=== PATIENT | male | born 1935 | race Caucasian/White ===

== ENCOUNTER → 2018-09-30 10:54 | Outpatient (CLI) | payer MEDICARE, SELFPAY ==
[2018-09-30 11:57] LABS: BUN Creatinine Ratio 28.6 (6-22); Blood Urea Nitrogen 20 mg/dL (9-20); Calcium 10.4 mg/dL (8.4-10.2); Carbon Dioxide 30 mmol/L (22-32); Chloride 103 mmol/L (98-107); Estimated Glomerular Filt Rate > 60.0 mL/min (>60); Glucose 98 mg/dL (80-110); HEMOLYSIS < 15 (0-50); Potassium 4.2 mmol/L (3.4-5.1); Sodium 142 mmol/L (137-145)
== END ==
PROVIDERS: Family Provider Family Medicine; PCP Family Medicine; Visit Provider Internal Medicine Cardiovascular Disease
DX: I10 Essential (primary) hypertension (principal)
CPT/HCPCS: 36415; 80048

== ENCOUNTER → 2018-10-15 07:58 | Outpatient (CLI) | payer MEDICARE, SELFPAY ==
--- NOTE | 2018-10-15 | DI.ECHO.S_ITS ---
[facility]---------+ [facility] +---------+ : : [address] : [address] [address] : : : : [id number] : : : : Phone: [phone]+ Echocardiogram Report + + :Name: YEISON RODRIGUEZ Study Date: 10/15/2018 Height: 72 in : :[facility] Weight: 193 lb : : Gender: Male BSA: 2.1 m2 : :: 1935 Age: 83 yrs BP: 160/86 mmHg: :Reason For Study: ASCENDING AORTIC DILATATION : :Ordering Physician: Ana : :Little Nayak Performed By: Sofya Zhao : + + Interpretation Summary Left ventricular size is at the upper limits of normal. The ejection fraction is estimated to be 35-40%. No significant change in LV ejection fraction. MV E/A: 2.3 Med Peak E' Zackery: 5.4 cm/sec E/E' med: 15.8 The right ventricle is normal size. Right ventricular systolic function is borderline reduced. There is mild aortic regurgitation. Compared to the prior echo study, there has been no change in the severity of aortic regurgitation. 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 4.9 cm in diameter. In July 22, 2017 it was 4.9-5.0 cm in diameter. In 05/09/2015 it was 4.8 cm in diameter. In 03/2011 it was 4.5 cm and in 08/2010, it was 4.7 cm. Procedure: A two-dimensional transthoracic echocardiogram with color flow and Doppler was performed. The study quality was technically adequate. A contrast injection of Definity was performed to improve assessment of LV function. Comparison is made with the echocardiogram of 07/22/2017. The patient had occasional PVCs during the exam. The patient was in normal sinus rhythm during the exam. Left Ventricle: Left ventricular wall thickness is mild-moderately increased. Left ventricular size is at the upper limits of normal. There is no ventricular septal defect visualized. The ejection fraction is estimated to be 35-40%. There has been no significant change since the previous study. There is basal inferior wall akinesis. There is mid inferior wall akinesis. Compared to the prior exam, the left ventricular wall motion has not changed. MV E/A: 2.3 Med Peak E' Zackery: 5.4 cm/sec E/E' med: 15.8. Right Ventricle: The right ventricle is normal size. Right ventricular systolic function is borderline reduced. Atria: The left atrium is moderately dilated. The left atrium has mildly increased in size since the prior echo exam. Right atrial size is normal. There is no Doppler evidence for an interatrial shunt. Mitral Valve: There is mild mitral annular calcification. There is trace mitral regurgitation. Aortic Valve: The aortic valve is trileaflet. The aortic valve opens well. The aortic valve is slightly calcified. There is no aortic valve stenosis. There is mild aortic regurgitation. Compared to the prior echo study, there has been no change in the severity of aortic regurgitation. Tricuspid Valve: The tricuspid valve is normal in structure and function. Pulmonary artery pressures cannot be estimated because of the lack of a measurable TR jet velocity. There is trace tricuspid regurgitation. Pulmonic Valve: The pulmonic valve leaflets are thin and pliable; valve motion is normal. There is trace pulmonic regurgitation. Great Vessels: The aortic root is mildly dilated. 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 There has been no significant change since the previous study. The aortic arch could not be visualized. The IVC is of normal diameter and collapses greater than 50% with a sniff. This suggests a low right atrial pressure of 3 mm Hg. Pericardium/ Pleura There is no pericardial effusion. MMode/2D Measurements & Calculations LVIDd: 5.7 cm LVOT diam: 2.9 cm LVIDs: 4.4 cm Ao root diam: 4.4 cm FS: 22.8 % Aortic Jxn: 3.9 cm EPSS: 1.2 cm asc Aorta Diam: 4.9 cm IVSd: 1.5 cm LVPWd: 1.4 cm LV crespo. diameter/BSA (cm/m^2): 2.7 LV sys. diameter/BSA (cm/m^2): 2.1 LA A2 area: 24.8 cm2 RA long axis: 4.4 cm LA A4 area: 24.8 cm2 RA area: 17.7 cm2 LA length (vol): 5.6 cm RA vol: 61.1 ml LA vol: 93.7 ml RA : 29.1 ml/m2 LA vol index: 44.7 ml/m2 IVC diam: 2.0 cm Doppler Measurements & Calculations Ao V2 max: 123.5 cm/sec LVOT Max Zackery: 54.7 cm/sec Ao V2 mean: 81.0 cm/sec LV V1 max P.2 mmHg Ao max P.1 mmHg LV V1 VTI: 11.9 cm Ao mean P.1 mmHg MIKKI(I,D): 3.1 cm2 Ao V2 VTI: 24.7 cm MIKKI(V,D): 2.9 cm2 sev ratio: 0.48 MIKKI indexed to BSA (cm^2/m^2): 1.5 AI P1/2t: 477.8 msec AI dec slope: 248.6 cm/sec2 MV E max zackery: 84.7 cm/sec PA V2 max: 58.6 cm/sec MV A max zackery: 36.7 cm/sec PA V2 mean: 39.1 cm/sec MV E/A: 2.3 PA mean P.70 mmHg Med Peak E' Zackery: 5.4 cm/sec PA Accel Time: 0.12 sec E/E' med: 15.8 Lat Peak E' Zackery: 6.5 cm/sec E/E' lat: 13.0 E/e' average: 14.4 MV dec time: 0.20 sec MV P1/2t: 58.1 msec MV P1/2t max zackery: 84.6 cm/sec SV(LVOT): 77.8 ml MVA(P1/2t): 3.8 cm2 Reading Physician:11:01 AM
== END ==
PROVIDERS: PCP Family Medicine; Visit Provider Internal Medicine Cardiovascular Disease
DX: I77.810 Thoracic aortic ectasia (principal); I35.1 Nonrheumatic aortic (valve) insufficiency
CPT/HCPCS: 93306; Q9957

== ENCOUNTER → 2019-01-06 12:40 | Outpatient (CLI) | payer MEDICARE, SELFPAY ==
[2019-01-06 13:50] LABS: BUN Creatinine Ratio 18.9 (6-22); Blood Urea Nitrogen 17 mg/dL (9-20); Calcium 10.7 mg/dL (8.4-10.2); Carbon Dioxide 29 mmol/L (22-32); Chloride 104 mmol/L (98-107); Cholesterol 125 mg/dL (140-199); Estimated Glomerular Filt Rate > 60.0 mL/min (>60); Glucose 98 mg/dL (80-110); HDL Cholesterol 33 mg/dL (40-60); HEMOLYSIS < 15 (0-50); LDL Cholesterol Calculated 58 mg/dL (<100); Potassium 4.5 mmol/L (3.4-5.1); Sodium 142 mmol/L (137-145); Triglycerides 168 mg/dL (35-150)
== END ==
PROVIDERS: PCP Family Medicine; Visit Provider Internal Medicine Cardiovascular Disease
DX: I10 Essential (primary) hypertension (principal); E78.5 Hyperlipidemia, unspecified
CPT/HCPCS: 36415; 80048; 80061

== ENCOUNTER 2019-06-09 09:01 | Emergency (ER) | payer MEDICARE, SELFPAY ==
[2019-06-09 09:15] VITALS: BP 195/98; PULSE 64; RESP 20; O2SAT 96; BMI 25.7
--- NOTE | 2019-06-09 09:15 | ED.GENADULT ---
HPI - General Adult General Chief complaint: Fall Stated complaint: FALL ON CEMENT,RIB PAIN Time Seen by Provider: 06/09/19 09:10 Source: patient Mode of arrival: Ambulatory Limitations: no limitations History of Present Illness HPI narrative: 83-year-old male. On anticoagulation. Here for evaluation of injuries that he sustained when he fell 2 days ago. He states he was trying to move an appliance when he lost his balance fell over hitting his left side on the ground. He did not hit his head. There was no loss of consciousness. Since then has had pain over his left lower ribs. Specifically pain with moving and coughing and taking deep breaths. No fevers. No productive sputum. Has not tried anything for symptoms prior to arrival. Related Data Home Medications Medication Instructions Recorded Confirmed tamsulosin [Flomax] 0.4 mg PO HS #0 02/27/11 05/05/19 atorvastatin [Lipitor] 40 mg PO HS #30 tab 12/15/15 05/05/19 metoprolol succinate [Toprol XL] 50 mg PO QDAY #0 07/30/16 05/05/19 nitroglycerin [Nitrostat] 0.4 mg SUBLINGUAL #0 07/30/16 05/05/19 amlodipine 5 mg tablet 5 mg PO DAILY 05/05/19 05/05/19 aspirin 81 mg tablet,delayed 81 mg PO DAILY 05/05/19 05/05/19 release Previous Rx's Medication Instructions Recorded trazodone 50 mg PO HS #30 tab 01/01/16 hydrocodone 7.5 mg-acetaminophen 1 - 2 tab PO SEE INSTRUCTIONS #100 04/23/18 325 mg tablet tab hydrochlorothiazide 25 mg tablet 25 mg PO QDAY #60 tab 09/30/18 citalopram 20 mg tablet 40 mg PO QDAY #180 tab 10/13/18 diazepam 5 mg tablet 5 mg PO BEDTIME PRN #30 tab 05/05/19 hydrocodone 7.5 mg-acetaminophen 1 - 2 tab PO Q4-6HP PRN #100 tab 05/05/19 325 mg tablet Allergies Allergy/AdvReac Type Severity Reaction Status Date / Time MUSCLE RELAXANTS Allergy Severe HARD TO Uncoded 06/25/17 13:07 BREATHE Review of Systems Constitutional Constitutional: Denies fever(s) and Denies headache(s) ENT Ears, Nose, Mouth, and Throat: Denies headache(s) Cardiovascular Comments: Left lower rib pain Respiratory Respiratory: Denies cough, Reports pain with cough and Denies wheezing Gastrointestinal Gastrointestinal: Denies abdominal pain Genitourinary Genitourinary: Denies dysuria Musculoskeletal Musculoskeletal: Denies back pain and Denies myalgias Integumentary/Breasts Skin/Breast: Denies lesions and Denies rash Neurologic Neurologic: Denies behavioral changes and Denies headache(s) Psychiatric Psychiatric: Denies behavioral changes Hematologic/Lymphatic Comments: On Coumadin Allergic/Immunologic Allergic/Immunologic: Denies wheezing Patient History Medical History Amputation of leg, right, traumatic (Acute) Social History Smoking Status: Former smoker (1982 Quit ) Smoking Status: Former smoker (1982 Quit ) Exam Initial Vital Signs Initial Vital Signs: Vital Signs Pulse Rate 64 06/09/19 09:15 Respiratory Rate 20 06/09/19 09:15 Blood Pressure 195/98 H 06/09/19 09:15 Pulse Oximetry 96 06/09/19 09:15 Const General: cooperative and comfortable Chest Other: Tenderness to palpation left lower ribs laterally and anterior. No crepitus. Resp Effort & Inspection: normal respiratory effort Auscultation: clear to auscultation bilaterally Cardio Rate: regular rate Rhythm: regular rhythm Skin Lesions: no lesions Rashes: no rashes Neuro General: alert and awake Cognition: normal cognition Speech: speech normal Extrem General: capillary refill normal Other: Right lower extremity amputation, not new Psych Appearance: grossly normal and well kempt Scores GCS Jefferson coma scale eye opening: Spontaneous Jefferson coma scale verbal response: Orientated [place] coma scale motor response: Obey commands Jefferson coma scale total score: 15 Course Orders Ordered: ED Orders 06/09/19 09:14 XR ribs LT min 3V w CXR1V Stat Vital Signs Vital signs: Vital Signs - 8 hr 06/09/19 09:15 06/09/19 10:29 Pulse Rate 64 74 Respiratory Rate 20 16 Blood Pressure 195/98 H Blood Pressure [Left Arm] 179/85 H Pulse Oximetry 96 96 Medical Decision Making Imaging Data XR ribs: Radiologist's Impression: [address] [address] XRay Report Signed Patient: Rajani Lin RMR#: [id number] : 6Acct:[id number] Age/Sex: 83 / MDate of Service: 06/09/19 Loc: ED Accession Number: [id number] Procedure: XR ribs LT min 3V w CXR1V Ordering Provider: Adrián Simental D.O. PROCEDURE: XR RIBS LT MIN 3V W CXR1V INDICATIONS: L lower lateral rib pain TECHNIQUE: 3 views of the left ribs were acquired, along with a single view chest. COMPARISON: [facility], CT, ABDOMEN/PELVIS WITH CONTRAST, 10/05/2015, 9:34. FINDINGS: Surgical changes and devices: Remote CABG. Bones and chest wall: Severe age indeterminate L1 compression fracture, which has occurred since the previous CT. Anterior lateral left eighth rib fracture. No suspicious bony lesions. Overlying soft tissues appear unremarkable. Lungs and pleura: Small left pleural effusion. Minimal bibasilar atelectasis. Mediastinum: Mediastinal contours appear normal. Heart size is mildly enlarged. IMPRESSION: 1. Anterolateral left eighth rib fracture. 2. Age-indeterminate severe L1 compression fracture. 3. Small left pleural effusion, minimal bibasilar atelectasis. Dictated by: Samir Alegria M.D. on 06/09/2019 at 10:06 Approved by: Samir Alegria M.D. on 06/09/2019 at 10:13 [facility] Narrative Medical decision making narrative: Patient without any respiratory distress. The left-sided rib x-ray does show a 8 rib fracture this does correspond to where he is tender on the his left chest. He has no tenderness over the L1 vertebral body. No fevers. He does have pain medication at home currently and also muscle relaxation. We did discuss the importance of taking deep breaths. We did discuss return precautions and follow-up instructions. He expressed understanding and agreement. Discharge Plan Departure Patient Disposition: Home Clinical Impression: Fracture of rib of left side Qualifiers: Encounter type: initial encounter Rib fracture type: single rib Fracture type: closed Qualified Code(s): S22.32XA - Fracture of one rib, left side, initial encounter for closed fracture Instructions: DI for Rib Fracture Activity Restrictions/Additional Instructions: It is important that you occasionally take deep breaths in order to prevent infections such as pneumonia. Unfortunately this is not a painless injury. It will hurt when you cough or sneeze. Take the pain medication at home like we discussed. Return to the emergency department for any new or worsening symptoms Prescriptions: No Action tamsulosin [Flomax] 0.4 MG capsule,extended release 24hr 0.4 mg PO HS Qty: 0 RF: 0 atorvastatin [Lipitor] 40 MG tablet 40 mg PO HS Qty: 30 RF: 0 trazodone 50 MG tablet 50 mg PO HS Qty: 30 RF: 5 nitroglycerin [Nitrostat] 0.4 MG tablet, sublingual 0.4 mg Sublingual Qty: 0 RF: 0 metoprolol succinate [Toprol XL] 50 MG tablet extended release 24 hr 50 mg PO QDAY Qty: 0 RF: 0 hydrocodone-acetaminophen [[place]] 7.5-325 mg tablet 1 - 2 tab PO SEE INSTRUCTIONS Qty: 100 RF: 0 hydrochlorothiazide 25 mg tablet 25 mg PO QDAY Qty: 60 RF: 0 citalopram [Celexa] 20 mg tablet 40 mg PO QDAY Qty: 180 RF: 1 amlodipine 5 mg tablet 5 mg PO DAILY RF: 0 aspirin [Adult Aspirin Regimen] 81 mg tablet,delayed release (DR/EC) 81 mg PO DAILY RF: 0 hydrocodone-acetaminophen [[place]] 7.5-325 mg tablet 1 - 2 tab PO Q4-6HP PRN (Reason: pain) Qty: 100 RF: 0 diazepam 5 mg tablet 5 mg PO BEDTIME PRN (Reason: muscle spasm) Qty: 30 RF: 2 Referrals: Ty Roland MD [Primary Care Provider] -
[2019-06-09 10:29] VITALS: BP 179/85; PULSE 74; RESP 16; O2SAT 96
--- NOTE | 2019-06-09 10:29 | PC.NURSE ---
dr florez aware of vs.
== END 2019-06-09 10:48 | disposition home or self-care (01) ==
PROVIDERS: Emergency Provider Emergency Medicine; PCP Family Medicine
DX: S22.32XA Fracture of one rib, left side, initial encounter for closed fracture (principal); W19.XXXA Unspecified fall, initial encounter
CPT/HCPCS: 71101; 99283; 99284

== ENCOUNTER → 2019-07-14 10:10 | Outpatient (CLI) | payer MEDICARE, SELFPAY ==
--- NOTE | 2019-07-14 10:17 | DI.RAD.S_ITS ---
PROCEDURE: XR RIBS LT MIN 3V W CXR1V INDICATIONS: Left side pain TECHNIQUE: 3 views of the left ribs were acquired, along with a single view chest. COMPARISON: [facility], CR, XR RIBS LT MIN 3V W CXR1V, 06/09/2019, 9:09. FINDINGS: Surgical changes and devices: Prior sternotomy wires, presumed prior CABG.. Bones and chest wall: No dislocations. But there is a left lateral eighth rib fracture, mildly displaced erlying soft tissues appear unremarkable. Lungs and pleura: No pleural effusions or pneumothorax. Lungs appear clear. Mediastinum: Mediastinal contours appear normal. Heart size is normal. IMPRESSION: Left lateral eighth rib fracture. No pneumothorax. Slight irregularity at the adjacent left ninth rib could represent an injury also. Dictated by: Rm Johnston M.D. on 07/14/2019 at 11:26 Approved by: Rm Johnston M.D. on 07/14/2019 at 11:28
== END ==
PROVIDERS: PCP Family Medicine; Referring Provider Family Medicine; Visit Provider Family Medicine
DX: S22.32XA Fracture of one rib, left side, initial encounter for closed fracture (principal)
CPT/HCPCS: 71101

== ENCOUNTER → 2020-05-05 14:56 | Outpatient (CLI) | payer MEDICARE, SELFPAY | PROVIDERS: PCP Family Medicine; Visit Provider Physician Assistant | DX: L03.111 Cellulitis of right axilla (principal) | CPT/HCPCS: 87070; 87075; 87147; 87205 ==

== ENCOUNTER → 2020-09-05 09:24 | Outpatient (CLI) | payer MEDICARE, SELFPAY ==
[2020-09-05 10:07] LABS: Add Manual Diff / Slide Review NO; Basophils Absolute Auto 0 /uL (0-100); Basophils Percent Auto 0.8 % (0-2); Eosinophils Absolute Auto 100 /uL (0-450); Eosinophils Percent Auto 1.3 % (2-4); Hematocrit 45.2 % (41-53); Hemoglobin 15.1 g/dL (13.5-17.5); Lymphocytes Absolute Auto 1800 /uL (1100-4500); Lymphocytes Percent Auto 29.9 % (25-40); Mean Corpuscular HGB Conc 33.3 % (30-36); Mean Corpuscular Hemoglobin 30.2 PG (26-34); Mean Corpuscular Volume 90.6 fL (80-100); Monocytes Absolute Auto 500 /uL (0-900); Neutrophils Absolute Auto 3500 /uL (1500-7000); Platelet Count 220 X10^3/uL (150-400); Red Blood Cell Count 4.99 X10^6/uL (4.5-5.9); Red Cell Distribution Width 14.8 % (11.6-14.8); White Blood Cell Count 5.9 X10^3/uL (4.5-11.0)
[2020-09-05 10:36] LABS: HEMOLYSIS < 15 (0-50)
[2020-09-05 10:42] LABS: Alanine Aminotransferase 12 IU/L (<50); Albumin Globulin Ratio 1.3 (1.0-2.8); Alkaline Phosphatase 72 U/L (38-126); Aspartate Aminotransferase 32 IU/L (17-59); BUN Creatinine Ratio 14.6 (6-22); Blood Urea Nitrogen 13 mg/dL (9-20); Calcium 10.2 mg/dL (8.4-10.2); Carbon Dioxide 30 mmol/L (22-32); Chloride 104 mmol/L (98-107); Cholesterol 168 mg/dL (140-199); Estimated Glomerular Filt Rate > 60.0 mL/min (>60); Glucose 106 mg/dL (80-110); HDL Cholesterol 39 mg/dL (40-60); LDL Cholesterol Calculated 104 mg/dL (<100); Potassium 3.5 mmol/L (3.4-5.1); Sodium 141 mmol/L (137-145); Triglycerides 126 mg/dL (35-150)
[2020-09-05 16:03] LABS: Hemoglobin A1C% w Est Avg Glu 5.4 % (4.0-6.0)
[2020-09-05 16:08] LABS: Prostate Specific Antigen 2.68 ng/mL (0.10-4.00)
== END ==
PROVIDERS: PCP Family Medicine; Referring Provider Family Medicine; Visit Provider Family Medicine
DX: E78.2 Mixed hyperlipidemia (principal); R63.4 Abnormal weight loss; N40.0 Benign prostatic hyperplasia without lower urinary tract symptoms; I10 Essential (primary) hypertension
CPT/HCPCS: 36415; 80053; 80061; 83036; 84153; 85025

== ENCOUNTER 2021-01-17 10:41 | Emergency (ER) | payer MEDICARE, SELFPAY ==
[2021-01-17 10:45] VITALS: BP 189/83; PULSE 97; RESP 14; TEMP 36.2; O2SAT 97; BMI 23.1
--- NOTE | 2021-01-17 10:57 | ED.GENADULT ---
HPI - General Adult General Chief complaint: Dental/Oral Stated complaint: Tooth pulled yesterday- still bleeding. onthinners Time Seen by Provider: 01/17/21 10:56 Source: patient Mode of arrival: Wheelchair Limitations: no limitations History of Present Illness HPI narrative: Patient is an 85-year-old male. Is on blood thinners. Yesterday had a tooth pulled. Last evening started having oozing from the site. Has been bleeding since then. No problems breathing. He thinks that he potentially could have taken an extra dose of his blood thinning medication last evening. He attempted to go to his dentist today but the dentist does not going to be in the office until this afternoon so he was instructed to come to the emergency department. Related Data Home Medications Medication Instructions Recorded Confirmed aspirin 81 mg tablet,delayed 81 mg PO DAILY 05/05/19 09/05/20 release (Adult Aspirin Regimen) Previous Rx's Medication Instructions Recorded amlodipine 5 mg tablet 5 mg PO DAILY #90 tab 09/05/20 atorvastatin 40 mg tablet (Lipitor) 40 mg PO HS #90 tab 09/05/20 citalopram 40 mg tablet 40 mg PO DAILY #90 tab 09/05/20 diazepam 5 mg tablet 5 mg PO BEDTIME PRN #30 tab 09/05/20 lisinopril 20 mg tablet 20 mg PO BID #180 tab 09/05/20 metoprolol succinate 50 mg 50 mg PO BID #180 tab 09/05/20 tablet,extended release 24 hr (Toprol XL) mupirocin 2 % topical ointment 1 applic TOPICAL TID #30 g 09/05/20 nitroglycerin 0.4 mg sublingual 0.4 mg SUBLINGUAL Q5-15M #20 tab 09/05/20 tablet (Nitrostat) tamsulosin 0.4 mg capsule (Flomax) 0.4 mg PO HS #90 cap 09/05/20 trazodone 50 mg tablet 50 mg PO HS #90 tab 09/05/20 hydrocodone 10 mg-acetaminophen 2 tab PO Q6H PRN #240 tab 11/28/20 325 mg tablet hydrocodone 7.5 mg-acetaminophen 1 - 2 tab PO Q4-6HP PRN #150 tab 11/28/20 325 mg tablet hydrochlorothiazide 25 mg tablet See Rx Instructions .ROUTE 12/13/20 .COMPLEX #90 tab Allergies Allergy/AdvReac Type Severity Reaction Status Date / Time MUSCLE RELAXANTS Allergy Severe HARD TO Uncoded 09/05/20 08:18 BREATHE Review of Systems ENT Ears, Nose, Mouth, and Throat: Reports system reviewed and no additional complaints, except as documented and Reports as per HPI Cardiovascular Cardiovascular: Reports system reviewed and no additional complaints, except as documented Respiratory Respiratory: Reports system reviewed and no additional complaints, except as documented Gastrointestinal Gastrointestinal: Reports system reviewed and no additional complaints, except as documented Hematologic/Lymphatic On Anticoagulants: Yes Patient History Medical History Amputation of leg, right, traumatic Cellulitis of right axilla Weight loss observed on examination Social History Smoking Status: Former smoker Smoking Status: Former smoker alcohol intake frequency: 0-2 drinks per day Substance Use Type: marijuana Exam Initial Vital Signs Initial Vital Signs: Vital Signs Temperature 97.1 F L 01/17/21 10:45 Pulse Rate 97 H 01/17/21 10:45 Respiratory Rate 14 01/17/21 10:45 Blood Pressure 189/83 H 01/17/21 10:45 Pulse Oximetry 97 01/17/21 10:45 Const General: cooperative, healthy appearing and comfortable HENTX Head: normal to inspection and normocephalic Teeth and gingiva: other (Oozing from right upper posterior tooth bed) Resp Effort & Inspection: normal respiratory effort Skin General: no rashes or lesions noted Neuro General: patient alert, patient awake and moves all extremities Extrem General: normal to inspection and capillary refill normal Psych Appearance: grossly normal and well kempt Course Orders Ordered: Discontinued Medications Tranexamic Acid (Tranexamic Acid 1,000 Mg Vial) 1,000 mg TOP NOW ONE Stop: 01/17/21 10:57 Last Admin: 01/17/21 11:00 Dose: 1,000 mg Documented by: AGUSTIN Vital Signs Vital signs: Vital Signs - 8 hr 01/17/21 10:45 Temperature 97.1 F L Pulse Rate 97 H Respiratory Rate 14 Blood Pressure 189/83 H Pulse Oximetry 97 Medical Decision Making MDM Narrative Medical decision making narrative: Patient did have a clot present in the upper right posterior molar tooth bit. There was quite a bit of oozing from this area. We used pressure and gauze and also Gelfoam soaked in TXA. We were able to slow the bleeding down quite a bit. At the time of discharge it was still oozing somewhat. I did discuss options with the patient to include injecting lidocaine with epinephrine into the area versus sending him home with gauze to continue to placed pressure over the area. We also discussed using ice at home. After this discussion he stated that he would like to be discharged home without any injections. I do not think this is unreasonable. Low suspicion for anemia secondary to blood loss. No indication for lab tests. He was given strict return precautions and follow-up instructions. He expressed understanding and agreement. Discharge Plan Departure Patient Disposition: Home Clinical Impression: Surgical wound hemorrhage after dental procedure Activity Restrictions/Additional Instructions: Use the gauze sponges like we discussed. Continue all of the post procedure instructions given to you by a dentist. Contact your primary doctor for a follow-up. Return to the emergency department for any new or worsening symptoms Prescriptions: No Action hydrocodone-acetaminophen 10-325 mg tablet 2 tab PO Q6H PRN (Reason: pain) Qty: 240 RF: 0 hydrocodone-acetaminophen 7.5-325 mg tablet 1 - 2 tab PO Q4-6HP PRN (Reason: pain) Qty: 150 RF: 0 hydrochlorothiazide 25 mg tablet See Rx Instructions .ROUTE .COMPLEX Qty: 90 RF: 2 amlodipine 5 mg tablet 5 mg PO DAILY Qty: 90 RF: 3 atorvastatin [Lipitor] 40 mg tablet 40 mg PO HS Qty: 90 RF: 3 citalopram 40 mg tablet 40 mg PO DAILY Qty: 90 RF: 3 diazepam 5 mg tablet 5 mg PO BEDTIME PRN (Reason: muscle spasm) Qty: 30 RF: 2 lisinopril 20 mg tablet 20 mg PO BID Qty: 180 RF: 3 metoprolol succinate [Toprol XL] 50 mg tablet extended release 24 hr 50 mg PO BID Qty: 180 RF: 3 mupirocin 2 % ointment 1 applic topical TID Qty: 30 RF: 0 nitroglycerin [Nitrostat] 0.4 mg tablet, sublingual 0.4 mg Sublingual Q5-15M Qty: 20 RF: 2 tamsulosin [Flomax] 0.4 mg capsule 0.4 mg PO HS Qty: 90 RF: 3 trazodone 50 mg tablet 50 mg PO HS Qty: 90 RF: 3 aspirin [Adult Aspirin Regimen] 81 mg tablet,delayed release (DR/EC) 81 mg PO DAILY RF: 0 Referrals: Filemon Nathan DO [Primary Care Provider] -
[2021-01-17] MEDS: TRANEXAMIC ACID 1,000 MG VIAL 1000 MG TOP (11:00)
--- NOTE | 2021-01-17 12:00 | PC.NURSE ---
Tooth socket continues to ooze blood around clot despite TXA gauze placement. Dr. Simental at bedside reapplying TXA gauze. Pt tolerating well.
== END 2021-01-17 13:05 | disposition home or self-care (01) ==
PROVIDERS: Emergency Provider Emergency Medicine; PCP Family Medicine
DX: M96.831 Postprocedural hemorrhage of a musculoskeletal structure following other procedure (principal); Z79.01 Long term (current) use of anticoagulants
CPT/HCPCS: 99282

== ENCOUNTER → 2021-03-16 09:06 | Outpatient (CLI) | payer MEDICARE, SELFPAY ==
[2021-03-16 09:43] LABS: BUN Creatinine Ratio 19.5 (6-22); Blood Urea Nitrogen 15 mg/dL (9-20); Calcium 10.1 mg/dL (8.4-10.2); Carbon Dioxide 31 mmol/L (22-32); Chloride 103 mmol/L (98-107); Cholesterol 124 mg/dL (140-199); Estimated Glomerular Filt Rate > 60.0 mL/min (>60); Glucose 100 mg/dL (80-110); HDL Cholesterol 44 mg/dL (40-60); HEMOLYSIS < 15 (0-50); LDL Cholesterol Calculated 65 mg/dL (<100); Potassium 4.2 mmol/L (3.4-5.1); Sodium 137 mmol/L (137-145); Triglycerides 73 mg/dL (35-150)
== END ==
PROVIDERS: PCP Family Medicine; Referring Provider Internal Medicine Cardiovascular Disease; Visit Provider Internal Medicine Cardiovascular Disease
DX: E78.5 Hyperlipidemia, unspecified (principal); I10 Essential (primary) hypertension; I25.5 Ischemic cardiomyopathy; Z95.1 Presence of aortocoronary bypass graft
CPT/HCPCS: 36415; 80048; 80061

== ENCOUNTER → 2021-03-26 09:58 | Outpatient (CLI) | payer MEDICARE, SELFPAY ==
[2021-03-26 10:29] LABS: Add Manual Diff / Slide Review NO; Basophils Absolute Auto 0 /uL (0-100); Basophils Percent Auto 0.7 % (0-2); Eosinophils Absolute Auto 100 /uL (0-450); Eosinophils Percent Auto 1.8 % (2-4); Hematocrit 43.5 % (41-53); Hemoglobin 14.6 g/dL (13.5-17.5); Lymphocytes Absolute Auto 1500 /uL (1100-4500); Lymphocytes Percent Auto 22.4 % (25-40); Mean Corpuscular HGB Conc 33.6 % (30-36); Mean Corpuscular Hemoglobin 30.5 PG (26-34); Mean Corpuscular Volume 90.8 fL (80-100); Monocytes Absolute Auto 500 /uL (0-900); Monocytes Percent Auto 7.8 % (3-14); Neutrophils Absolute Auto 4500 /uL (1500-7000); Neutrophils Percent Auto 67.3 % (50-75); Platelet Count 203 X10^3/uL (150-400); Red Blood Cell Count 4.79 X10^6/uL (4.5-5.9); Red Cell Distribution Width 15.2 % (11.6-14.8); White Blood Cell Count 6.7 X10^3/uL (4.5-11.0)
[2021-03-26 11:06] LABS: Magnesium 1.9 mg/dL (1.6-2.3)
[2021-03-26 11:34] LABS: Prostate Specific Antigen Scrn 2.46 ng/mL (0.1-4.0); TSH w/ Reflex to FT4 1.26 uIU/mL (0.47-4.68)
== END ==
PROVIDERS: PCP Family Medicine; Referring Provider Internal Medicine Cardiovascular Disease; Visit Provider Internal Medicine Cardiovascular Disease
DX: K59.00 Constipation, unspecified; I10 Essential (primary) hypertension; I48.0 Paroxysmal atrial fibrillation; R63.4 Abnormal weight loss; Z12.5 Encounter for screening for malignant neoplasm of prostate
CPT/HCPCS: 36415; 83735; 84443; 85025; G0103

== ENCOUNTER → 2021-04-25 10:22 | Outpatient (CLI) | payer MEDICARE, SELFPAY ==
[2021-04-25 13:33] LABS: COVID19 -Nasal RAPID Negative (Negative)
== END ==
PROVIDERS: PCP Family Medicine; Visit Provider Family Medicine Sleep Medicine
DX: Z20.822 Contact with and (suspected) exposure to COVID-19 (principal)
CPT/HCPCS: 87635; C9803

== ENCOUNTER → 2021-04-27 08:31 | Outpatient (CLI) | payer MEDICARE, SELFPAY ==
--- NOTE | 2021-04-27 | DI.ECHO.S_ITS ---
[facility]---------+ [facility] +---------+ : : [address] : : [place] : : : : [id number] : : : : Phone: [phone]---------+ Echocardiogram Report + + :Name: YEISON RODRIGUEZ Study Date: 04/27/2021 Height: 73 in : :[facility] : Weight: 150 lb : : Gender: Male BSA: 1.9 m2 : :: 1935 Age: 85 yrs BP: 158/106 mmHg: :Reason For Study: Cardiomyopathy, Ischemic : :Ordering Physician: Guera : :Little Walker Performed By: Eric Young : :Referring: GUERA WALEKR : + + Interpretation Summary The left ventricle is normal in size. The ejection fraction is estimated to be 35-40%. No significant change in LVEF from previous study. The right ventricle is mildly dilated. Right ventricular systolic function is mildly reduced. No significant valvular pathology seen other than mild MR, MR, PI and TR. 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 Asc Aorta Diam: 5.1 cm. in October 2018, it was 4.9 cm in diameter. In July 22, 2017 it was 4.9-5.0 cm in diameter. In 05/09/2015 it was 4.8 cm in diameter. In 03/2011 it was 4.5 cm and in 08/2010, it was 4.7 cm in diameter. Patient is in A. fib with controlled rate. Previously sinus rhythm. Procedure: A two-dimensional transthoracic echocardiogram with color flow and Doppler was performed. The study quality was technically adequate. Comparison is made with the echocardiogram of 10/15/2018. The subcostal views were difficult to obtain and are suboptimal in quality. The heart rate ranged between 68 - 91 bpm during the study. The patient was in atrial fibrillation with controlled ventricular rate during the exam. The patient had frequent PACs during the exam. Left Ventricle: The left ventricle is normal in size. Proximal septal thickening is noted. There is no echo evidence for significant left ventricular outflow tract obstruction. There is no thrombus. The ejection fraction is estimated to be 35-40%. There has been no significant change since the previous exam. There is basal inferior wall akinesis. There is mid inferior wall akinesis. There is mid anteroseptal wall hypokinesis. No significant change from previous study. Diastolic function could not be accurately assessed due to unobtainable data. Right Ventricle: The right ventricle is mildly dilated. Right ventricular systolic function is mildly reduced. Atria: The left atrium is moderately dilated. There has been no significant change since the previous study. The right atrium is mildly dilated. There is no Doppler evidence for an interatrial shunt. Mitral Valve: There is mild mitral annular calcification. There is mild mitral regurgitation. Aortic Valve: The aortic valve is trileaflet. The aortic valve opens well. There is mild aortic valve sclerosis. There is mild aortic regurgitation. Compared to the prior echo study, there has been no change in the severity of aortic regurgitation. Tricuspid Valve: The tricuspid valve is normal. There is mild tricuspid regurgitation. Right ventricular systolic pressure is estimated to be 29 mmHg plus the clinically estimated CVP which cannot be estimated on this exam. Pulmonic Valve: The pulmonic valve is not well seen, but is grossly normal. There is mild pulmonic regurgitation. Great Vessels: The aortic root is mildly dilated. 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 The aortic arch is normal in size. The inferior vena cava was not visualized. Pericardium/ Pleura There is no pericardial effusion. There is an anterior echo-free space consistent with a fat pad. There is no pleural effusion. MMode/2D Measurements & Calculations LVIDd: 5.3 cm LVOT diam: 2.6 cm LVIDs: 4.3 cm Ao root diam: 4.3 cm FS: 19.4 % asc Aorta Diam: 5.1 cm IVSd: 1.3 cm Ao Arch Diam (Prox Trans): 2.5 cm LVPWd: 1.0 cm LV crespo. diameter/BSA (cm/m^2): 2.8 LV sys. diameter/BSA (cm/m^2): 2.3 LA A2 area: 23.1 cm2 RA long axis: 6.4 cm LA A4 area: 18.2 cm2 RA area: 21.8 cm2 LA length (vol): 5.5 cm RA vol: 63.2 ml LA vol: 65.0 ml RA : 33.2 ml/m2 LA vol index: 34.1 ml/m2 TAPSE: 1.3 cm Doppler Measurements & Calculations Ao V2 max: 132.7 cm/sec LVOT Max Zackery: 70.6 cm/sec Ao V2 mean: 97.4 cm/sec LV V1 max P.0 mmHg Ao max P.0 mmHg LV V1 VTI: 12.8 cm Ao mean P.2 mmHg MIKKI(I,D): 3.0 cm2 Ao V2 VTI: 23.4 cm MIKKI(V,D): 2.9 cm2 sev ratio: 0.55 MIKKI indexed to BSA (cm^2/m^2): 1.6 TR max zackery: 270.5 cm/sec SV(LVOT): 69.5 ml TR max P.3 mmHg Reading Physician:09:31 AM
--- NOTE | 2021-04-27 11:57 | PM.TREADMILL ---
Cardiac Stress Test Report Referral & Results Date Patient Seen: 04/27/21 Time Patient Seen: 11:57 Requesting provider: Ana Nayak Indication: Ischemic cardiomyopathy Rest ECG: Sinus rhythm with frequent PVCs Procedure Note: After Lexiscan injection had minimal dyspnea, no chest discomfort No significant ST changes Frequent PVCs, couplets Impression: Normal Lexiscan stress test Nuclear images pending Please note: Actual ECG tracings can be found in the PACS system.
--- NOTE | 2021-04-27 19:13 | DI.NM.S_ITS ---
DATE OF SERVICE: 04/27/2021 PROCEDURE PERFORMED: Pharmacologic vasodilator stress and rest myocardial perfusion imaging with gating to assess ejection fraction and regional wall motion. ORDERING PROVIDER: Dr. Ana Nayak. INDICATIONS: The patient is an 85-year-old male with a history of coronary artery bypass grafting, ischemic cardiomyopathy, and atrial fibrillation. PHARMACOLOGIC VASODILATOR STRESS: Per protocol, 0.4 mg of regadenoson was infused with a normal hemodynamic response. He developed mild dyspnea but no chest discomfort. His resting ECG shows atrial fibrillation with LVH with a strain pattern. With stress, there were no significant ST-segment shifts. He had occasional wide QRS beats, possibly reflecting PVCs or aberrant conduction, but there was no concerning complex ventricular ectopy. Per protocol, 25.2 millicuries of technetium-99m Myoview was injected. He was imaged 20 minutes later using a gated SPECT acquisition protocol. Earlier in the day while at rest, he had been injected with 9.6 millicuries of technetium- 99m Myoview and was imaged 20 minutes later, again using a gated SPECT acquisition protocol. FINDINGS: 1. Raw data: There is fair myocardial tracer uptake with some motion noted on the resting images producing fairly poor image quality. No prone images were able to be obtained. The lung/heart ratio is normal at 0.29 with a TID ratio of 1.14. 2. Quantitated gated SPECT: Post-stress ejection fraction is estimated at 39% with moderate global hypokinesis, which appears more profound at the base of the inferior wall. The resting images are of poor quality. While the calculated ejection fraction is 28%, visually it appears to be similar to the post-stress ejection fraction with similar wall motion. The resting end-diastolic volume is elevated at 176 mL. 3. Myocardial perfusion imaging: Post-stress supine images show a severe perfusion defect at the base of the inferior wall with a slight inferior defect extending into the mid and distal inferior wall in a pattern that could be consistent with diaphragmatic attenuation but there are no prone images to assess for this. In addition, there is mildly reduced perfusion in the mid to distal anterior septum extending out to the apex. The resting images show a very similar perfusion pattern in the inferior wall with minimal, if any, improvement at the periphery of the defect. The distal anterior apical and septal perfusion also remains decreased, but appears slightly improved, suggesting some reversibility. IMPRESSION: 1. Probable abnormal myocardial perfusion study. 2. Predominantly fixed, but minimally reversible, proximal to mid inferior perfusion defect. While this could reflect diaphragmatic attenuation artifact, given the wall motion abnormality in this distribution, this most likely reflects a previous infarction with minimal brian-infarct ischemia. In addition, there is a small volume of possible ischemia in the mid and distal septum and apex but with reduced specificity, given the absence of the prone imaging and the marginal quality of the resting images. There does not appear to be any large volume of ischemia. 3. Moderately reduced left ventricular systolic function with moderate global hypokinesis, more profound in the proximal inferior wall. Left ventricular volumes are likely moderately increased. 4. No angina or ECG evidence of ischemia with pharmacologic vasodilator stress. He was in atrial fibrillation with occasional PVCs versus aberrant conduction but no concerning complex ventricular ectopy. Rajani Lin - SANDHYA/camryn/daniel doc#: [id number]/job#: [id number] dd: 04/27/2021 17:13:00 dt: 04/27/2021 18:54:00 DICTATING MD/COPIES TO: Rohith Gordon MD; Ana Nayak MD COPIES MNE: RUBI;
== END ==
PROVIDERS: PCP Family Medicine; Referring Provider Internal Medicine Cardiovascular Disease; Visit Provider Internal Medicine Cardiovascular Disease
DX: I77.89 Other specified disorders of arteries and arterioles (principal); I77.810 Thoracic aortic ectasia; I08.3 Combined rheumatic disorders of mitral, aortic and tricuspid valves; I25.5 Ischemic cardiomyopathy; Z95.1 Presence of aortocoronary bypass graft
CPT/HCPCS: 78452; 93017; 93306; A9502; J2785

== ENCOUNTER 2021-08-20 07:45 | Inpatient (IN) | payer MEDICARE, SELFPAY ==
[2021-08-20] VITALS (29 sets, daily range): BP systolic 125–184; BP diastolic 54–101; PULSE 60–80; RESP 14–34; TEMP 36.3–37.2; O2SAT 93–100; BMI 22.9
--- NOTE | 2021-08-20 07:42 | DI.CT.S_ITS ---
PROCEDURE: CT STROKE INDICATIONS: left sided hemiparesis, lateral gaze TECHNIQUE: Noncontrast 4.5 mm thick angled axial sections acquired from the foramen magnum to the vertex, with coronal reformats. For radiation dose reduction, the following was used: automated exposure control, adjustment of mA and/or kV according to patient size. COMPARISON: None. FINDINGS: Image quality: Excellent. CSF spaces: Basal cisterns are patent. No extra-axial fluid collections. The ventricles are symmetric in size and shape. Brain: No intracranial bleeds or masses. There is cerebral volume loss for age, with resultant ventricular and sulcal prominence. There are periventricular and deep white matter chronic small vessel ischemic changes. There is intracranial internal carotid artery and vertebral artery atherosclerosis. Skull and face: Calvarium and visualized facial bones appear intact, without suspicious lesions. Sinuses: Visualized sinuses and mastoids are clear. IMPRESSION: No acute intracranial disease process. Findings telephoned to Dr. Harrell on August 20, 2021 at 8:10 a.m. This study fulfills neurological imaging criteria for inclusion or exclusion of acute stroke therapies based on available published neurological guidelines. Dictated by: Luisa Steinberg MD, PhD on 08/20/2021 at 8:09 Approved by: Luisa Steinberg MD, PhD on 08/20/2021 at 8:11
--- NOTE | 2021-08-20 07:43 | DI.CT.S_ITS ---
PROCEDURE: CT ANGIO HEAD AND NECK INDICATIONS: left hemiparesis, lateral gaze TECHNIQUE: After the administration of intravenous contrast, 1 mm thick sections acquired from the aortic arch through the [place] of [place]. Post-contrast 4.5 mm thick sections then re-acquired from the foramen magnum to the vertex. 3-dimensional [id number]-ucqbsoirg-pzrvcysqpa (MIP) and/or volume rendering reformats were acquired of the central intracranial vasculature and neck separately. For radiation dose reduction, the following was used: automated exposure control, adjustment of mA and/or kV according to patient size. COMPARISON: [facility], CT, CT STROKE, 08/20/2021, 7:42. FINDINGS: Image quality: Excellent. BRAIN: CSF spaces: Ventricles are normal in size and shape. Basal cisterns are patent. No extra-axial fluid collections. Brain: No midline shift. No intracranial bleeds or masses. On the postcontrast images there is subtle loss of navarro-white matter differentiation involving the right parietal-temporal lobes concerning for acute infarct. Skull and face: Calvarium and facial bones appear intact, without suspicious lesions. Orbits appear normal. Sinuses: Sinuses and mastoids are clear. HEAD CT ANGIOGRAPHY: Anterior circulation: Intracranial internal carotid arteries are normal in flow. Atherosclerotic calcifications noted in the cavernous and clinoid segments of the internal carotid arteries bilaterally which causes mild stenosis of the vessels. The flow within the paired anterior cerebral arteries is normal and symmetric. There is decreased postcontrast enhancement in the M3 and M4 branches of the right middle cerebral artery relative to the left. The anterior communicating artery is seen. No aneurysms are seen. Posterior circulation: Visualized portions of the vertebral arteries demonstrate normal caliber, and join to form a normal appearing basilar artery. Flow within the posterior cerebral arteries is normal and symmetric. No aneurysms are seen. Dural sinuses demonstrate normal postcontrast enhancement. NECK CT ANGIOGRAPHY: Carotid system: The great vessels demonstrate a conventional anatomy as they arise from the aortic arch. The origins of the common carotid arteries appear patent. The common carotid arteries demonstrate normal caliber and courses. Atherosclerotic calcifications noted in the origins of the internal carotid arteries which causes less than 50% stenosis of the vessels. Posterior circulation: The origins of the vertebral arteries both appear widely patent. Patient is left vertebral artery dominant. The more superior extracranial portions of both vertebral arteries also demonstrate normal courses and calibers. Left posterior cerebral artery has a origin. They join to form a normal appearing basilar artery. Soft tissues: Visualized neck soft tissues demonstrate no suspicious abnormalities. Bones: No suspicious bony lesions. Spine degenerative disc disease and facet arthropathy. Visualized cervical spine appears normally aligned. IMPRESSION: 1. Subtle loss of navarro-white matter differentiation in the right parietal-temporal lobes concerning for acute infarct. 2. Diminished postcontrast enhancement in the distal M3 and M4 branches of the right middle cerebral artery relative to the left concerning for thrombus/embolus. 3. No vascular dissection or aneurysm. Any quantitative measurements of stenosis were performed using NASCET criteria. Dictated by: Luisa Steinberg MD, PhD on 08/20/2021 at 8:25 Approved by: Luisa Steinberg MD, PhD on 08/20/2021 at 8:35
--- NOTE | 2021-08-20 08:09 | ED_ITS ---
HPI - Neuro Symptoms/Deficit General Chief Complaint: Neuro Symptoms/Deficit Stated Complaint: Stroke Time Seen by Provider: 08/20/21 07:49 Source: EMS Mode of arrival: EMS Limitations: no limitations History of Present Illness HPI Narrative: This is an 85-year-old male with prior right lower extremity AKA, dyslipidemia, hypertension with a history of ischemic cardiomyopathy and aortic root enlargement, CAD status post 4 vessel CABG, permanent AFib patient is supposed to be anticoagulated on apixaban as of May 11, 2021 history of MAZE procedure with a prior EF of 30-35%. Patient has seen Cardiology about having an ICD placed in April of 2021. Patient presents last normal was 2100 on 08/19/2021. Patient has some dysarthria does aphasia so difficult to obtain history from the patient himself but indicates he got up to go to the bathroom. He was found on the floor face down. Per EMR patient is on aspirin 81 mg daily, according to his cardiology consult from April 2021 he is supposed to be anticoagulated on apixaban. Patient has left-sided deficits and facial droop with difficulty with speech noted by family and EMS. Related Data Home Medications Medication Instructions Recorded Confirmed aspirin 81 mg tablet,delayed 81 mg PO DAILY 05/05/19 09/05/20 release (Adult Aspirin Regimen) Previous Rx's Medication Instructions Recorded amlodipine 5 mg tablet 5 mg PO DAILY #90 tab 09/05/20 atorvastatin 40 mg tablet (Lipitor) 40 mg PO HS #90 tab 09/05/20 lisinopril 20 mg tablet 20 mg PO BID #180 tab 09/05/20 metoprolol succinate 50 mg 50 mg PO BID #180 tab 09/05/20 tablet,extended release 24 hr (Toprol XL) nitroglycerin 0.4 mg sublingual 0.4 mg SUBLINGUAL Q5-15M #20 tab 09/05/20 tablet (Nitrostat) fluoxetine 10 mg capsule 10 mg PO DAILY #90 cap 01/29/21 hydrochlorothiazide 25 mg tablet See Rx Instructions .ROUTE 02/16/21 .COMPLEX #90 tab mupirocin 2 % topical ointment 1 applic TOPICAL TID #30 g 02/16/21 diazepam 5 mg tablet 5 mg PO BEDTIME PRN #30 tab 05/04/21 hydrocodone 7.5 mg-acetaminophen 1 - 2 tab PO Q4-6HP PRN #150 tab 05/04/21 325 mg tablet tamsulosin 0.4 mg capsule (Flomax) 0.4 mg PO HS #90 cap 05/04/21 trazodone 50 mg tablet 50 mg PO HS #90 tab 08/14/21 Allergies Allergy/AdvReac Type Severity Reaction Status Date / Time MUSCLE RELAXANTS Allergy Severe HARD TO Uncoded 09/05/20 08:18 BREATHE Review of Systems Review of Systems ROS Unobtainable: Unobtainable due to medical condition Patient History Medical History Amputation of leg, right, traumatic Cellulitis of right axilla Constipation Ischemic cardiomyopathy Weight loss observed on examination Social History Smoking Status: Former smoker Smoking Status: Former smoker alcohol intake frequency: 0-2 drinks per day Substance Use Type: marijuana Exam Narrative Exam Narrative: GEN: well nourished, male, alert and oriented, patient appears to be in a moderate distress. HEENT: Atraumatic, pupils are equal round reactive to light, lateral gaze palsy to the right, nares are clear, TMs are clear with no fluid, patient has left- sided facial droop, dysarthria aphasia. HEART: Regular rate and rhythm without murmur, clicks, rubs. Pulses are equal in upper extremities LUNGS:Lungs clear to auscultation, no wheezes, rales, crackles, chest moves symmetrically ABD:bowel sounds normal, soft, non-tender, no guarding, rebound, rigidity, no masses noted, no hepatosplenomegaly :No CVA tenderness MSCL: Non-tender, no muscle atrophy, muscles strength patient has 5/5 strength and water hauler with the right upper extremity, he is flaccid on the left upper extremity. He does have movement with drift on the left lower extremity. Patient has a AKA on the right lower extremity but is able to lift his stump without issue. NEURO:CN 2-12 intact, patient appreciate sensation in right upper extremity unclear if he appreciated on the left side. nose finger test able with the right upper extremity, unsuccessful with the left, heel schultz test unable to be t est with the left because patient has no right lower extremity. Initial Vital Signs Initial Vital Signs: Vital Signs Temperature 98.9 F 08/20/21 07:53 Pulse Rate 68 08/20/21 07:53 Respiratory Rate 20 08/20/21 07:53 Blood Pressure 157/89 H 08/20/21 07:53 Pulse Oximetry 98 08/20/21 07:53 Course Orders Ordered: ED Orders 08/20/21 07:42 CT Stroke Stat EKG-12 Lead Stat 08/20/21 07:43 CT angio head and neck Stat 08/20/21 07:54 COVID19 -Nasal RAPID/Pre-Proc Stat 08/20/21 08:10 Basic Metabolic Panel Stat Complete Blood Count AUTO DIFF Stat Partial Thromboplastin Time Stat Prothrombin Time INR Stat Troponin & CK Cardiac Panel Stat 08/20/21 08:24 Urinalysis and Microscopic Stat Urine Drug Screen, Rapid Stat 08/20/21 08:30 MAG [Magnesium] Stat 08/20/21 09:11 ABG [Arterial Blood Gas] Stat 08/20/21 09:53 BMP [Basic Metabolic Panel] Stat 08/20/21 09:57 MAG [Magnesium] Stat 08/20/21 12:40 Hemoglobin and Hematocrit Stat Sodium Chloride (Normal Saline 0.9%) 1,000 mls @ 150 mls/hr IV CONT KRISTIAN Last Admin: 08/20/21 08:13 Dose: 150 mls/hr Documented by: VIKASH Discontinued Medications Aspirin (Aspirin 300 Mg Supp) 300 mg NE NOW ONE Stop: 08/20/21 08:09 Last Admin: 08/20/21 08:57 Dose: 300 mg Documented by: VIKASH Calcium Gluconate 9.3 meq/ (Sodium Chloride) 70 mls @ 140 mls/hr IV NOW ONE Stop: 08/20/21 09:10 Last Admin: 08/20/21 10:56 Dose: Not Given Documented by: VIKASH Calcium Gluconate 4.65 meq/ (Sodium Chloride) 60 mls @ 180 mls/hr IV NOW ONE Stop: 08/20/21 09:00 Last Infusion: 08/20/21 10:00 Dose: 0 mls/hr Documented by: Admin: 08/20/21 09:32 Dose: 180 mls/hr Documented by: VIKASH POTASSIUM CHLORIDE IN WATER (Potassium Cl 10 Meq/100 Ml [place]) 10 meq in 100 mls @ 100 mls/hr IV Q1H KRISTIAN Stop: 08/20/21 16:44 Last Admin: 08/20/21 10:56 Dose: Not Given Documented by: Infusion: 08/20/21 09:59 Dose: 0 mls/hr Documented by: Admin: 08/20/21 08:53 Dose: 100 mls/hr Documented by: VIKASH Reevaluation(s) Reevaluation #1: Patient has had some brief periods of apnea. He is arousable. Time: 08:55 Reevaluation #2: Patient is much more awake on recheck. More verbal and speech somewhat improved although clearly not normal. Updates on neurology recommendations. son is at bedside. No more apneic episodes. Consultations Consultation #1: Spoke with son Jai, he is on his way about 30 minutes out. We discussed intubation and CPR. He believes his father has a DNR/DNI in place but he is unsure. He asked if we can try to hold off on any intubation until he arrives this would be about 9:30 a.m.. He has his father's paperwork they have had some discussions. If it was for a short-term intervention potentially would be okay with intubation but he is unsure. Discussed if patient's respiratory status continues to decline and he is not a DNR/DNI for sure we would have to intubate prior to his arrival. He did express understanding and is on his way. Time: 09:45 Consultation #2: Dr. Kennedy, [facility]roke [facility] Reviewing images and will decide if interventional candidate. Agree with aspirin at this time. Does ask for recheck lytes as potassium is quite low. Time: 09:50 Consultation #3: Dr. Kennedy, neurology. [facility] Not interventional candidate. Recommends stroke workup. Hold Eliquis 2nd to risk to converting to hemorrhagic stroke for now. Time: 11:02 Additional Consultation(s): Dr. Proctor, hospitalist. Accepts for admission. Discussed patient has reported new ICD in the last several months so would not be a candidate for MRI here at [facility] appropriate stroke workup. To hold Eliquis currently aspirin given and recommendations from neurology discussed. Vital Signs Vital signs: Vital Signs - 8 hr 08/20/21 07:53 08/20/21 08:17 08/20/21 08:30 Temperature 98.9 F Pulse Rate 68 64 61 Respiratory Rate 20 23 26 H Blood Pressure 157/89 H 154/77 H Pulse Oximetry 98 93 94 08/20/21 08:39 08/20/21 08:45 08/20/21 09:00 Temperature Pulse Rate 61 60 65 Respiratory Rate 14 22 28 H Blood Pressure 136/77 169/78 H Pulse Oximetry 100 100 100 08/20/21 09:15 08/20/21 09:30 08/20/21 09:45 Temperature 97.4 F L Pulse Rate 62 63 61 Respiratory Rate 18 27 H 29 H Blood Pressure 170/75 H 161/81 H 154/77 H Pulse Oximetry 100 100 100 08/20/21 10:00 08/20/21 10:15 08/20/21 10:30 Temperature Pulse Rate 63 70 64 Respiratory Rate 23 27 H 34 H Blood Pressure 165/81 H 183/94 H 167/74 H Pulse Oximetry 100 100 100 08/20/21 10:45 08/20/21 11:00 08/20/21 11:16 Temperature Pulse Rate 62 64 64 Respiratory Rate 23 30 H 31 H Blood Pressure 168/77 H 184/81 H 169/80 H Pulse Oximetry 99 100 100 08/20/21 11:30 08/20/21 11:45 Temperature Pulse Rate 60 67 Respiratory Rate 20 22 Blood Pressure 167/76 H 169/78 H Pulse Oximetry 100 100 MDM - Neuro Symptoms/Deficit Lab Data Result diagrams: 08/20/21 12:40 08/20/21 09:53 Labs: Lab Results 08/20/21 08/20/21 08/20/21 Range/Units 07:54 08:10 08:10 WBC 3.7 L (4.5-11.0) X10^3/uL RBC 3.06 L (4.5-5.9) X10^6/uL Hgb 9.3 L (13.5-17.5) g/dL Hct 27.4 L (41-53) % MCV 89.7 (80-100) fL MCH 30.4 (26-34) PG MCHC 33.9 (30-36) % RDW 14.9 H (11.6-14.8) % Plt Count 91 L (150-400) X10^3/uL Neut % (Auto) 73.8 (50-75) % Lymph % (Auto) 16.4 L (25-40) % [place] % (Auto) 7.8 (3-14) % Eos % (Auto) 1.7 L (2-4) % Baso % (Auto) 0.3 (0-2) % Neut # (Auto) 2700 (0140-9312) /uL Lymph # (Auto) 600 L (7810-7674) /uL [place] # (Auto) 300 (0-900) /uL Eos # (Auto) 100 (0-450) /uL Baso # (Auto) 0 (0-100) /uL PT 19.6 H (10.1-12.7) SECONDS INR 1.7 H (0.9-1.3) APTT 38 H (26.4-36.2) SECONDS ABG pH (7.35-7.45) ABG pCO2 (35-45) mmHg ABG pO2 (80-100) mmHg ABG HCO3 (22-26) mmol/L ABG Total CO2 (21-31) mmol/L ABG O2 Saturation (95-100) % ABG Base Excess (-2-2) mmol/L FiO2 Sodium (137-145) mmol/L Potassium (3.4-5.1) mmol/L Chloride (98-107) mmol/L Carbon Dioxide (22-32) mmol/L BUN (9-20) mg/dL Creatinine (0.66-1.25) mg/dL Estimated GFR (>60) mL/min BUN/Creatinine Ratio (6-22) Glucose (80-110) mg/dL Calcium (8.4-10.2) mg/dL Magnesium (1.6-2.3) mg/dL Total Creatine Kinase (55-170) U/L CK-MB (CK-2) CK-MB (CK-2) Rel Index Troponin I (0.01-0.034) ng/mL Urine Color Urine Appearance Urine pH (4.5-8.0) Ur Specific [place] (1.000-1.035) Urine Protein (Negative) Urine Glucose (UA) (Negative) g/dL Urine Ketones (NEGATIVE) Urine Occult Blood (Negative) Urine Nitrate (Negative) Urine Bilirubin (NEGATIVE) Urine Urobilinogen (0.2) E.U./dL Ur Leukocyte Esterase (NEGATIVE) Urine RBC (0-5/HPF) Urine WBC (0-5/HPF) Ur Squamous Epith Cells (0-5/HPF) Urine Bacteria (None) Hyaline Casts (None) Ur Culture Indicated? U Opiates 300ng/mL cut (Negative) Ur Oxycodone Screen (Negative) Urine Methadone Screen (Negative) Ur Barbiturates Screen (Negative) U Tricyclic Antidepress (Negative) Ur Phencyclidine Scrn (Negative) Ur Amphetamines Screen (Negative) U Methamphetamines Scrn (Negative) Ur MDMA Scrn (Ecstasy) (Negative) U Benzodiazepines Scrn (Negative) Urine Cocaine Screen (Negative) U Marijuana (THC) Screen (Negative) SARS-CoV-2 (PCR) Negative (Negative) 08/20/21 08/20/21 08/20/21 Range/Units 08:10 08:24 08:24 WBC (4.5-11.0) X10^3/uL RBC (4.5-5.9) X10^6/uL Hgb (13.5-17.5) g/dL Hct (41-53) % MCV (80-100) fL MCH (26-34) PG MCHC (30-36) % RDW (11.6-14.8) % Plt Count (150-400) X10^3/uL Neut % (Auto) (50-75) % Lymph % (Auto) (25-40) % [place] % (Auto) (3-14) % Eos % (Auto) (2-4) % Baso % (Auto) (0-2) % Neut # (Auto) (7725-3790) /uL Lymph # (Auto) (2158-1465) /uL [place] # (Auto) (0-900) /uL Eos # (Auto) (0-450) /uL Baso # (Auto) (0-100) /uL PT (10.1-12.7) SECONDS INR (0.9-1.3) APTT (26.4-36.2) SECONDS ABG pH (7.35-7.45) ABG pCO2 (35-45) mmHg ABG pO2 (80-100) mmHg ABG HCO3 (22-26) mmol/L ABG Total CO2 (21-31) mmol/L ABG O2 Saturation (95-100) % ABG Base Excess (-2-2) mmol/L FiO2 Sodium 142 (137-145) mmol/L Potassium 1.7 L* (3.4-5.1) mmol/L Chloride 123 H* (98-107) mmol/L Carbon Dioxide 16 L (22-32) mmol/L BUN 10 (9-20) mg/dL Creatinine 0.44 L (0.66-1.25) mg/dL Estimated GFR > 60 (>60) mL/min BUN/Creatinine Ratio 22.7 H (6-22) Glucose 76 L (80-110) mg/dL Calcium 4.7 L* (8.4-10.2) mg/dL Magnesium (1.6-2.3) mg/dL Total Creatine Kinase 21 L (55-170) U/L CK-MB (CK-2) TNP CK-MB (CK-2) Rel Index TNP Troponin I 0.014 (0.01-0.034) ng/mL Urine Color Yellow Urine Appearance Clear Urine pH 5.0 (4.5-8.0) Ur Specific [place] 1.025 (1.000-1.035) Urine Protein 2+ H (Negative) Urine Glucose (UA) Negative (Negative) g/dL Urine Ketones Negative (NEGATIVE) Urine Occult Blood Trace-intact (Negative) Urine Nitrate Negative (Negative) Urine Bilirubin Negative (NEGATIVE) Urine Urobilinogen 1.0 (0.2) E.U./dL Ur Leukocyte Esterase Negative (NEGATIVE) Urine RBC 0-1/hpf (0-5/HPF) Urine WBC 0-1/hpf (0-5/HPF) Ur Squamous Epith Cells None seen (0-5/HPF) Urine Bacteria None seen (None) Hyaline Casts 0-1/lpf (None) Ur Culture Indicated? Cult not indicated U Opiates 300ng/mL cut Positive H (Negative) Ur Oxycodone Screen Negative (Negative) Urine Methadone Screen Negative (Negative) Ur Barbiturates Screen Negative (Negative) U Tricyclic Antidepress Negative (Negative) Ur Phencyclidine Scrn Negative (Negative) Ur Amphetamines Screen Negative (Negative) U Methamphetamines Scrn Negative (Negative) Ur MDMA Scrn (Ecstasy) Negative (Negative) U Benzodiazepines Scrn Positive H (Negative) Urine Cocaine Screen Negative (Negative) U Marijuana (THC) Screen Positive H (Negative) SARS-CoV-2 (PCR) (Negative) 08/20/21 08/20/21 08/20/21 Range/Units 08:30 09:11 09:53 WBC (4.5-11.0) X10^3/uL RBC (4.5-5.9) X10^6/uL Hgb (13.5-17.5) g/dL Hct (41-53) % MCV (80-100) fL MCH (26-34) PG MCHC (30-36) % RDW (11.6-14.8) % Plt Count (150-400) X10^3/uL Neut % (Auto) (50-75) % Lymph % (Auto) (25-40) % [place] % (Auto) (3-14) % Eos % (Auto) (2-4) % Baso % (Auto) (0-2) % Neut # (Auto) (9517-8734) /uL Lymph # (Auto) (0473-5341) /uL [place] # (Auto) (0-900) /uL Eos # (Auto) (0-450) /uL Baso # (Auto) (0-100) /uL PT (10.1-12.7) SECONDS INR (0.9-1.3) APTT (26.4-36.2) SECONDS ABG pH 7.47 H (7.35-7.45) ABG pCO2 35.8 (35-45) mmHg ABG pO2 113 H (80-100) mmHg ABG HCO3 26 (22-26) mmol/L ABG Total CO2 27 (21-31) mmol/L ABG O2 Saturation 99 (95-100) % ABG Base Excess 2.0 (-2-2) mmol/L FiO2 32 Sodium 140 (137-145) mmol/L Potassium 3.4 D (3.4-5.1) mmol/L Chloride 106 (98-107) mmol/L Carbon Dioxide 29 (22-32) mmol/L BUN 16 (9-20) mg/dL Creatinine 0.86 (0.66-1.25) mg/dL Estimated GFR > 60 (>60) mL/min BUN/Creatinine Ratio 18.6 (6-22) Glucose 112 H (80-110) mg/dL Calcium 10.0 (8.4-10.2) mg/dL Magnesium 0.8 L* (1.6-2.3) mg/dL Total Creatine Kinase (55-170) U/L CK-MB (CK-2) CK-MB (CK-2) Rel Index Troponin I (0.01-0.034) ng/mL Urine Color Urine Appearance Urine pH (4.5-8.0) Ur Specific [place] (1.000-1.035) Urine Protein (Negative) Urine Glucose (UA) (Negative) g/dL Urine Ketones (NEGATIVE) Urine Occult Blood (Negative) Urine Nitrate (Negative) Urine Bilirubin (NEGATIVE) Urine Urobilinogen (0.2) E.U./dL Ur Leukocyte Esterase (NEGATIVE) Urine RBC (0-5/HPF) Urine WBC (0-5/HPF) Ur Squamous Epith Cells (0-5/HPF) Urine Bacteria (None) Hyaline Casts (None) Ur Culture Indicated? U Opiates 300ng/mL cut (Negative) Ur Oxycodone Screen (Negative) Urine Methadone Screen (Negative) Ur Barbiturates Screen (Negative) U Tricyclic Antidepress (Negative) Ur Phencyclidine Scrn (Negative) Ur Amphetamines Screen (Negative) U Methamphetamines Scrn (Negative) Ur MDMA Scrn (Ecstasy) (Negative) U Benzodiazepines Scrn (Negative) Urine Cocaine Screen (Negative) U Marijuana (THC) Screen (Negative) SARS-CoV-2 (PCR) (Negative) 08/20/21 Range/Units 09:57 WBC (4.5-11.0) X10^3/uL RBC (4.5-5.9) X10^6/uL Hgb (13.5-17.5) g/dL Hct (41-53) % MCV (80-100) fL MCH (26-34) PG MCHC (30-36) % RDW (11.6-14.8) % Plt Count (150-400) X10^3/uL Neut % (Auto) (50-75) % Lymph % (Auto) (25-40) % [place] % (Auto) (3-14) % Eos % (Auto) (2-4) % Baso % (Auto) (0-2) % Neut # (Auto) (4083-1703) /uL Lymph # (Auto) (5085-2479) /uL [place] # (Auto) (0-900) /uL Eos # (Auto) (0-450) /uL Baso # (Auto) (0-100) /uL PT (10.1-12.7) SECONDS INR (0.9-1.3) APTT (26.4-36.2) SECONDS ABG pH (7.35-7.45) ABG pCO2 (35-45) mmHg ABG pO2 (80-100) mmHg ABG HCO3 (22-26) mmol/L ABG Total CO2 (21-31) mmol/L ABG O2 Saturation (95-100) % ABG Base Excess (-2-2) mmol/L FiO2 Sodium (137-145) mmol/L Potassium (3.4-5.1) mmol/L Chloride (98-107) mmol/L Carbon Dioxide (22-32) mmol/L BUN (9-20) mg/dL Creatinine (0.66-1.25) mg/dL Estimated GFR (>60) mL/min BUN/Creatinine Ratio (6-22) Glucose (80-110) mg/dL Calcium (8.4-10.2) mg/dL Magnesium 1.8 (1.6-2.3) mg/dL Total Creatine Kinase (55-170) U/L CK-MB (CK-2) CK-MB (CK-2) Rel Index Troponin I (0.01-0.034) ng/mL Urine Color Urine Appearance Urine pH (4.5-8.0) Ur Specific [place] (1.000-1.035) Urine Protein (Negative) Urine Glucose (UA) (Negative) g/dL Urine Ketones (NEGATIVE) Urine Occult Blood (Negative) Urine Nitrate (Negative) Urine Bilirubin (NEGATIVE) Urine Urobilinogen (0.2) E.U./dL Ur Leukocyte Esterase (NEGATIVE) Urine RBC (0-5/HPF) Urine WBC (0-5/HPF) Ur Squamous Epith Cells (0-5/HPF) Urine Bacteria (None) Hyaline Casts (None) Ur Culture Indicated? U Opiates 300ng/mL cut (Negative) Ur Oxycodone Screen (Negative) Urine Methadone Screen (Negative) Ur Barbiturates Screen (Negative) U Tricyclic Antidepress (Negative) Ur Phencyclidine Scrn (Negative) Ur Amphetamines Screen (Negative) U Methamphetamines Scrn (Negative) Ur MDMA Scrn (Ecstasy) (Negative) U Benzodiazepines Scrn (Negative) Urine Cocaine Screen (Negative) U Marijuana (THC) Screen (Negative) SARS-CoV-2 (PCR) (Negative) Imaging Data CT scan - head: Radiologist's Impression: ?? [address] [address] [address] Scan Report Signed Patient: Rajani Lin MR#: [id number] : 1935 Acct:[id number] Age/Sex: 85 / M Date of Service: 08/20/21 Loc: ED Accession Number: [id number] ?? Procedure: CT Stroke Ordering Provider: Marlyn Harrell D.O. PROCEDURE:? CT STROKE ? INDICATIONS:? left sided hemiparesis, lateral gaze ? TECHNIQUE:? Noncontrast 4.5 mm thick angled axial sections acquired from the foramen magnum to the vertex, with coronal reformats.? For radiation dose reduction, the following was used:? automated exposure control, adjustment of mA and/or kV according to patient size.? ? COMPARISON:? None. ? FINDINGS:? Image quality:? Excellent.? ? CSF spaces:? Basal cisterns are patent.? No extra-axial fluid collections.? The ventricles are symmetric in size and shape.? ? Brain:? No intracranial bleeds or masses.? There is cerebral volume loss for age, with resultant ventricular and sulcal prominence.? There are periventricular and deep white matter chronic small vessel ischemic changes.? There is intracranial internal carotid artery and vertebral artery atherosclerosis.? ? Skull and face:? Calvarium and visualized facial bones appear intact, without suspicious lesions.? ? Sinuses:? Visualized sinuses and mastoids are clear.? ? ? IMPRESSION:? No acute intracranial disease process. ? Findings telephoned to Dr. Harrell on August 20, 2021 at 8:10 a.m. ? ? This study fulfills neurological imaging criteria for inclusion or exclusion of acute stroke therapies based on available published neurological guidelines.? ? ? Dictated by: Luisa Steinberg MD, PhD on 08/20/2021 at 8:09 ? ? Approved by: Luisa Steinberg MD, PhD on 08/20/2021 at 8:11?? CTA - brain/neck: Radiologist's Impression: Launch?Image [address] [address] [address] Scan Report Signed Patient: Rajani Lin MR#: [id number] : 1935 Acct:[id number] Age/Sex: 85 / M Date of Service: 08/20/21 Loc: ED Accession Number: [id number] ?? Procedure: CT angio head and neck Ordering Provider: Marlyn Harrell D.O. PROCEDURE:? CT ANGIO HEAD AND NECK ? INDICATIONS:? left hemiparesis, lateral gaze ? TECHNIQUE:? After the administration of intravenous contrast, 1 mm thick sections acquired from the aortic arch through the [place] of [place].? Post-contrast 4.5 mm thick sections then re-acquired from the foramen magnum to the vertex.? 3-dimensional htpnuhv-bqsffahtk-[id number] (MIP) and/or volume rendering reformats were acquired of the central intracranial vasculature and neck separately. For radiation dose reduction, the following was used:? automated exposure control, adjustment of mA and/or kV according to patient size.? ? COMPARISON:? [facility], CT, CT STROKE, 08/20/2021, 7:42. ? FINDINGS:? Image quality:? Excellent.? ? BRAIN:? CSF spaces:? Ventricles are normal in size and shape.? Basal cisterns are patent.? No extra-axial fluid collections.? ? Brain:? No midline shift.? No intracranial bleeds or masses.? On the postcontrast images there is subtle loss of navarro-white matter differentiation involving the right parietal-temporal lobes concerning for acute infarct. ? Skull and face:? Calvarium and facial bones appear intact, without suspicious lesions.? Orbits appear normal.? ? Sinuses:? Sinuses and mastoids are clear.? ? HEAD CT ANGIOGRAPHY:? Anterior circulation:? Intracranial internal carotid arteries are normal in flow. Atherosclerotic calcifications noted in the cavernous and clinoid segments of the internal carotid arteries bilaterally which causes mild stenosis of the vessels.? ? The flow within the paired anterior cerebral arteries is normal and symmetric.? There is decreased postcontrast enhancement in the M3 and M4 branches of the right middle cerebral artery relative to the left.? The anterior communicating artery is seen.? No aneurysms are seen.? ? Posterior circulation:? Visualized portions of the vertebral arteries demonstrate normal caliber, and join to form a normal appearing basilar artery.? Flow within the posterior cerebral arteries is normal and symmetric.? No aneurysms are seen.? ? Dural sinuses demonstrate normal postcontrast enhancement.? ? NECK CT ANGIOGRAPHY:? Carotid system:? The great vessels demonstrate a conventional anatomy as they arise from the aortic arch.? The origins of the common carotid arteries appear patent.? The common carotid arteries demonstrate normal caliber and courses.? Atherosclerotic calcifications noted in the origins of the internal carotid arteries which causes less than 50% stenosis of the vessels. ? Posterior circulation:? The origins of the vertebral arteries both appear widely patent.? Patient is left vertebral artery dominant.? The more superior extracranial portions of both vertebral arteries also demonstrate normal courses and calibers.? Left pos terior cerebral artery has a origin.? They join to form a normal appearing basilar artery. ? ? Soft tissues:? Visualized neck soft tissues demonstrate no suspicious abnormalities.? ? Bones:? No suspicious bony lesions.? Spine degenerative disc disease and facet arthropathy. Visualized cervical spine appears normally aligned.? ? ? IMPRESSION:? ? 1. Subtle loss of navarro-white matter differentiation in the right parietal- temporal lobes concerning for acute infarct. ? 2. Diminished postcontrast enhancement in the distal M3 and M4 branches of the right middle cerebral artery relative to the left concerning for thrombus/embolus. ? 3. No vascular dissection or aneurysm.? ? ? Any quantitative measurements of stenosis were performed using NASCET criteria.? ? ? Dictated by: Luisa Steinberg MD, PhD on 08/20/2021 at 8:25 ? ? Approved by: Luisa Steinberg MD, PhD on 08/20/2021 at 8:35?? ECG Data Attestation: I personally reviewed and interpreted this ECG as follows: Interpretation: Ventricularly paced rhythm, rate of 63 NE 156 QRS is 202 and QTC of 523. MDM Narrative Medical decision making narrative: This is an 85-year-old male who comes with stroke last known normal was 9:00 p.m. last night patient is far outside the tPA window, also likely on Eliquis to its in his past medical history and his INR is 1.7. Patient has changes on CT angio consistent with recent infarct and a 3 mm for occlusion possibly. Images were pushed discussed with neurology who after further evaluation does not feel patient is an interventional candidate. She does remark command aspirin, holding Eliquis at this time secondary to risk for conversion to hemorrhagic stroke, regular stroke workup blood pressure control. Patient's labs initially were quite altered, these were repeated and are normal. Patient did initially receive some calcium and potassium but was stopped. Patient had snoring respirations initially when he arrived, there was concern for possible need for intubation and this does discussed with son who states he is not a CPR candidate, intubation only if it is a very short-term acute issue anything taylor jorge term they would not want intubation. And also as patient was here in the department his mentation improved, speech slightly, he continues to have a lateral gaze, left upper extremity was still not having any movement but patient had some movement of the left lower extremity. Discussed with hospitalist who kindly accepts for inpatient admission. Stroke Core Measures Exclusion Criteria TPA in CVA: Symptom Onset >3 or 4.5 Hours Critical Care Time Critical Care Time Critical Care Time: Yes Total Critical Care Time: 25 Attestation: The high probability of a clinically significant, sudden or life threatening deterioration of the [cardiac, pulm] system(s) required my full and direct attention, intervention and personal management. The aggregate critical care time was [] minutes. This time is in addition to time spent performing reported procedures but includes the following: [x] Data Review and interpretation [x] Patient assessment and monitoring of vital signs [x] Documentation [x] Medication orders and management Discharge Plan Departure Patient Disposition: Admitted As Inpatient Clinical Impression: Acute CVA (cerebrovascular accident) Admit Date/Time: 08/20/21 11:55 Admit Provider: Herrera Proctor
[2021-08-20] MEDS: SODIUM CHLORIDE 0.9% 1,000 ML 150 ML IV (08:13)
[2021-08-20 08:25] LABS: COVID19 -Nasal RAPID Negative (Negative)
[2021-08-20 08:26] LABS: Add Manual Diff / Slide Review NO; Basophils Absolute Auto 0 /uL (0-100); Basophils Percent Auto 0.3 % (0-2); Eosinophils Absolute Auto 100 /uL (0-450); Eosinophils Percent Auto 1.7 % (2-4); Hematocrit 27.4 % (41-53); Hemoglobin 9.3 g/dL (13.5-17.5); Lymphocytes Absolute Auto 600 /uL (1100-4500); Lymphocytes Percent Auto 16.4 % (25-40); Mean Corpuscular HGB Conc 33.9 % (30-36); Mean Corpuscular Hemoglobin 30.4 PG (26-34); Mean Corpuscular Volume 89.7 fL (80-100); Monocytes Absolute Auto 300 /uL (0-900); Monocytes Percent Auto 7.8 % (3-14); Neutrophils Absolute Auto 2700 /uL (1500-7000); Neutrophils Percent Auto 73.8 % (50-75); Platelet Count 91 X10^3/uL (150-400); Red Blood Cell Count 3.06 X10^6/uL (4.5-5.9); Red Cell Distribution Width 14.9 % (11.6-14.8); White Blood Cell Count 3.7 X10^3/uL (4.5-11.0)
[2021-08-20 08:34] LABS: INR 1.7 (0.9-1.3); Prothrombin Time 19.6 SECONDS (10.1-12.7)
[2021-08-20 08:36] LABS: PTT Partial Thromboplastin Tim 38 SECONDS (26.4-36.2)
[2021-08-20 08:37] LABS: BUN Creatinine Ratio 22.7 (6-22); Blood Urea Nitrogen 10 mg/dL (9-20); Carbon Dioxide 16 mmol/L (22-32); Creatine Kinase 21 U/L (55-170); Estimated Glomerular Filt Rate > 60 mL/min (>60); Glucose 76 mg/dL (80-110); HEMOLYSIS 15 (0-50); Sodium 142 mmol/L (137-145)
[2021-08-20 08:41] LABS: Potassium 1.7 mmol/L (3.4-5.1)
[2021-08-20 08:42] LABS: Calcium 4.7 mg/dL (8.4-10.2); Chloride 123 mmol/L (98-107)
[2021-08-20 08:46] LABS: Appearance Urine UA CLEAR; Bilirubin Urine UA NEGATIVE (NEGATIVE); Color Urine UA YELLOW; Glucose Urine UA NEGATIVE (Negative); Ketones Urine UA NEGATIVE (NEGATIVE); Leukocyte Esterase Urine UA NEGATIVE (NEGATIVE); Nitrite Urine UA NEGATIVE (Negative); Occult Blood Urine UA TRACE-INTACT (Negative); Protein Urine UA 2+ (Negative); Specific Gravity Urine UA 1.025 (1.000-1.035)
[2021-08-20 08:49] LABS: Troponin I 0.014 ng/mL (0.01-0.034)
[2021-08-20 08:51] LABS: UR Morphine/Opiate cutoff 300 Positive (Negative); Ur Creatinine Normal (Normal); Ur Specific Gravity Normal (Normal); Urine Amphetamines Negative (Negative); Urine Barbiturates Negative (Negative); Urine Benzodiazepines Positive (Negative); Urine Cocaine Negative (Negative); Urine MDMA Negative (Negative); Urine Methadone Negative (Negative); Urine Methamphetamines Negative (Negative); Urine Oxycodone Negative (Negative); Urine Phencyclidine Negative (Negative); Urine Tetrahydrocannabinol Positive (Negative); Urine Tricyclic Antidepressant Negative (Negative); Urine pH Normal (Normal)
[2021-08-20] MEDS: POTASSIUM CHLORIDE IN WATER 10 MEQ/100 ML PIGGYBACK 100 MEQ IV (08:53)
[2021-08-20 08:56] LABS: Magnesium 0.8 mg/dL (1.6-2.3)
[2021-08-20] MEDS: ASPIRIN 300 MG SUPP PR (08:57)
[2021-08-20 09:13] LABS: RBC Urine 0-1/HPF (0-5/HPF)
--- NOTE | 2021-08-20 09:13 | PC.NURSE ---
IV potassium started per order. Awaiting IV calcium drip from pharmacy.
[2021-08-20 09:14] LABS: Bacteria Urine None Seen; Culture Indicated Urine Cult Not Indicated; Hyaline Casts Urine 0-1/LPF; Squamous Epithelial Cell Urine None Seen (0-5/HPF); WBC Urine 0-1/HPF (0-5/HPF)
[2021-08-20 09:22] LABS: PCO2 ABG 35.8 mmHg (35-45); PO2 ABG 113 mmHg (80-100); pH ABG 7.47 (7.35-7.45)
[2021-08-20 09:23] LABS: Fractionated Inspired Oxygen 32; HCO3 ABG 26 mmol/L (22-26); Oxygen Saturation ABG 99 % (95-100); TCO2 ABG 27 mmol/L (21-31)
[2021-08-20] MEDS: CALCIUM GLUCONATE 4.65 MEQ in SODIUM CHLORIDE 0.9% 50 ML 180 MEQ IV (09:32)
--- NOTE | 2021-08-20 09:37 | PC.NURSE ---
Patient's son arrived and is at bedside with physician. Patient was having apneic episodes earlier and snoring respirations. He is arousable with sternal rub and verbal stimulation. He is intermittently awake and responding verbally, but difficult to understand. Provider is aware. RT called and ABG was drawn. Patient remains on end tidal monitoring and 3L nasal cannula.
[2021-08-20 10:15] LABS: Magnesium 1.8 mg/dL (1.6-2.3)
[2021-08-20 10:16] LABS: BUN Creatinine Ratio 18.6 (6-22); Blood Urea Nitrogen 16 mg/dL (9-20); Carbon Dioxide 29 mmol/L (22-32); Chloride 106 mmol/L (98-107); Estimated Glomerular Filt Rate > 60 mL/min (>60); Glucose 112 mg/dL (80-110); HEMOLYSIS < 15 (0-50); Potassium 3.4 mmol/L (3.4-5.1); Sodium 140 mmol/L (137-145)
[2021-08-20 12:47] LABS: Hematocrit 42.8 % (41-53); Hemoglobin 14.4 g/dL (13.5-17.5)
--- NOTE | 2021-08-20 12:52 | PC.NURSE ---
Patient is more awake and talking with family at bedside. He is using suction catheter to help clear secretions and maintaining his oxygenation at 98-99% on room air. Removed from end tidal monitoring and assisted patient with repositioning.
--- NOTE | 2021-08-20 14:38 | PM.HP.1 ---
History of Present Illness History of Present Illness Date Patient Seen: 08/20/21 Time Patient Seen: 14:00 Chief complaint: Stroke Narrative: 85-year-old right handed male with history traumatic right AKA, chronic back pain, phantom limb pain, ischemic cardiomyopathy, 4 vessel CABG, permanent atrial fibrillation, and SVT, ascending aorta aneurysm, hypertension, hyperlipidemia and most recently ICD placement in April 2021 brought to emergency department for stroke symptoms. Last normal was 9:00 p.m. yesterday evening. In ED noted to be dysarthric with a left facial droop and left hemiparesis. Initial BP was 157/89. Head CT showed subtle loss of navarro white matter differentiation in right parietal temporal lobes consistent with acute infarct. CTA showed enhancement in distal M3 and M4 branches of right MCA concerning for thrombus/embolus. There is no significant narrowing and carotid or posterior circulation. Initial lab draw in the ED with incorrect CBC and chemistry values and were repeated. Patient did intervene Geeta receive IV calcium based on and correct lab data. Patient presented too late for tPA. ED physician contacted tele Stroke Team who did not think he was candidate for catheter intervention and recommended aspirin but to hold Eliquis for now. Patient's son did confirm to ED physician no CPR code status. Family history unable to obtain. Patient History Medical History Amputation of leg, right, traumatic Cellulitis of right axilla Constipation Ischemic cardiomyopathy Weight loss observed on examination Family & Social History Tobacco & Substance use: Smoking Status Former smoker alcohol intake frequency 0-2 drinks per day Substance Use Type marijuana Meds Home Medications and Allergies Home Medications Medication Instructions Recorded Confirmed Type aspirin 81 mg tablet,delayed 81 mg PO DAILY 05/05/19 09/05/20 History release (Adult Aspirin Regimen) amlodipine 5 mg tablet 5 mg PO DAILY #90 tab 09/05/20 09/05/20 Rx atorvastatin 40 mg tablet (Lipitor) 40 mg PO HS #90 tab 09/05/20 09/05/20 Rx nitroglycerin 0.4 mg sublingual 0.4 mg SUBLINGUAL Q5-15M #20 tab 09/05/20 09/05/20 Rx tablet (Nitrostat) hydrocodone 7.5 mg-acetaminophen 1 - 2 tab PO Q4-6HP PRN #150 tab 05/04/21 Rx 325 mg tablet tamsulosin 0.4 mg capsule (Flomax) 0.4 mg PO HS #90 cap 05/04/21 Rx trazodone 50 mg tablet 50 mg PO HS #90 tab 08/14/21 Rx citalopram 40 mg tablet 40 mg PO DAILY 08/20/21 08/20/21 History hydrochlorothiazide 25 mg tablet 25 mg PO DAILY 08/20/21 08/20/21 History metoprolol succinate 50 mg 50 mg PO BID 08/20/21 08/20/21 History tablet,extended release 24 hr (Toprol XL) Allergies Allergy/AdvReac Type Severity Reaction Status Date / Time MUSCLE RELAXANTS Allergy Severe HARD TO Uncoded 09/05/20 08:18 BREATHE Review of Systems Review of Systems Narrative: Complete ROS limited by patient significant dysarthria. Exam Vital Signs (past 8 hours): - 08/20/21 07:53 08/20/21 08:17 08/20/21 08:30 Temperature 98.9 F Pulse Rate 68 64 61 Respiratory Rate 20 23 26 H Blood Pressure 157/89 H 154/77 H Pulse Oximetry 98 93 94 08/20/21 08:39 08/20/21 08:45 08/20/21 09:00 Temperature Pulse Rate 61 60 65 Respiratory Rate 14 22 28 H Blood Pressure 136/77 169/78 H Pulse Oximetry 100 100 100 08/20/21 09:15 08/20/21 09:30 08/20/21 09:45 Temperature 97.4 F L Pulse Rate 62 63 61 Respiratory Rate 18 27 H 29 H Blood Pressure 170/75 H 161/81 H 154/77 H Pulse Oximetry 100 100 100 08/20/21 10:00 08/20/21 10:15 08/20/21 10:30 Temperature Pulse Rate 63 70 64 Respiratory Rate 23 27 H 34 H Blood Pressure 165/81 H 183/94 H 167/74 H Pulse Oximetry 100 100 100 08/20/21 10:45 08/20/21 11:00 08/20/21 11:16 Temperature Pulse Rate 62 64 64 Respiratory Rate 23 30 H 31 H Blood Pressure 168/77 H 184/81 H 169/80 H Pulse Oximetry 99 100 100 08/20/21 11:30 08/20/21 11:45 08/20/21 12:00 Temperature Pulse Rate 60 67 61 Respiratory Rate 20 22 22 Blood Pressure 167/76 H 169/78 H 161/72 H Pulse Oximetry 100 100 99 08/20/21 12:15 08/20/21 12:30 08/20/21 12:45 Temperature Pulse Rate 74 71 70 Respiratory Rate 31 H 22 19 Blood Pressure 160/101 H 160/75 H Pulse Oximetry 99 96 97 08/20/21 13:00 08/20/21 13:15 08/20/21 13:30 Temperature Pulse Rate 74 66 67 Respiratory Rate 17 23 16 Blood Pressure 180/83 H 168/92 H 168/74 H Pulse Oximetry 98 98 96 08/20/21 13:45 Temperature Pulse Rate 74 Respiratory Rate 19 Blood Pressure 171/77 H Pulse Oximetry 96 Oxygen Delivery Method Room Air Oxygen Flow Rate 3 Narrative Exam Narrative: General: Alert male who is resting and not anxious HEENT: Nontraumatic, pupils equal and reactive, there is a right gaze deviation Neck: No lymphadenopathy Lungs: Few bibasilar crackles Heart: Left upper chest ICD pacemaker noted. Normal S1 and S2, regular paced rhythm, no murmur Abdomen: Soft, nontender, no HSM Extremities: Right AKA stump, no edema Neurological: Oriented to person and place, speech is at least moderately dysarthric and aphasic, there is dense left side hemiparesis with absence of sensation in left upper and lower extremity Skin: No rash or pressure ulcers noted Objective Labs Result Diagrams: 08/20/21 12:40 08/20/21 09:53 Labs: Laboratory Results - last 24 hr 08/20/21 08/20/21 08/20/21 07:54 08:10 08:10 WBC 3.7 L RBC 3.06 L Hgb 9.3 L Hct 27.4 L MCV 89.7 MCH 30.4 MCHC 33.9 RDW 14.9 H Plt Count 91 L Neut % (Auto) 73.8 Lymph % (Auto) 16.4 L [place] % (Auto) 7.8 Eos % (Auto) 1.7 L Baso % (Auto) 0.3 Neut # (Auto) 2700 Lymph # (Auto) 600 L [place] # (Auto) 300 Eos # (Auto) 100 Baso # (Auto) 0 PT 19.6 H INR 1.7 H APTT 38 H ABG pH ABG pCO2 ABG pO2 ABG HCO3 ABG Total CO2 ABG O2 Saturation ABG Base Excess FiO2 Sodium Potassium Chloride Carbon Dioxide BUN Creatinine Estimated GFR BUN/Creatinine Ratio Glucose Calcium Magnesium Total Creatine Kinase CK-MB (CK-2) CK-MB (CK-2) Rel Index Troponin I Urine Color Urine Appearance Urine pH Ur Specific [place] Urine Protein Urine Glucose (UA) Urine Ketones Urine Occult Blood Urine Nitrate Urine Bilirubin Urine Urobilinogen Ur Leukocyte Esterase Urine RBC Urine WBC Ur Squamous Epith Cells Urine Bacteria Hyaline Casts Ur Culture Indicated? U Opiates 300ng/mL cut Ur Oxycodone Screen Urine Methadone Screen Ur Barbiturates Screen U Tricyclic Antidepress Ur Phencyclidine Scrn Ur Amphetamines Screen U Methamphetamines Scrn Ur MDMA Scrn (Ecstasy) U Benzodiazepines Scrn Urine Cocaine Screen U Marijuana (THC) Screen SARS-CoV-2 (PCR) Negative 08/20/21 08/20/21 08/20/21 08:10 08:24 08:24 WBC RBC Hgb Hct MCV MCH MCHC RDW Plt Count Neut % (Auto) Lymph % (Auto) [place] % (Auto) Eos % (Auto) Baso % (Auto) Neut # (Auto) Lymph # (Auto) [place] # (Auto) Eos # (Auto) Baso # (Auto) PT INR APTT ABG pH ABG pCO2 ABG pO2 ABG HCO3 ABG Total CO2 ABG O2 Saturation ABG Base Excess FiO2 Sodium 142 Potassium 1.7 L* Chloride 123 H* Carbon Dioxide 16 L BUN 10 Creatinine 0.44 L Estimated GFR > 60 BUN/Creatinine Ratio 22.7 H Glucose 76 L Calcium 4.7 L* Magnesium Total Creatine Kinase 21 L CK-MB (CK-2) TNP CK-MB (CK-2) Rel Index TNP Troponin I 0.014 Urine Color Yellow Urine Appearance Clear Urine pH 5.0 Ur Specific [place] 1.025 Urine Protein 2+ H Urine Glucose (UA) Negative Urine Ketones Negative Urine Occult Blood Trace-intact Urine Nitrate Negative Urine Bilirubin Negative Urine Urobilinogen 1.0 Ur Leukocyte Esterase Negative Urine RBC 0-1/hpf Urine WBC 0-1/hpf Ur Squamous Epith Cells None seen Urine Bacteria None seen Hyaline Casts 0-1/lpf Ur Culture Indicated? Cult not indicated U Opiates 300ng/mL cut Positive H Ur Oxycodone Screen Negative Urine Methadone Screen Negative Ur Barbiturates Screen Negative U Tricyclic Antidepress Negative Ur Phencyclidine Scrn Negative Ur Amphetamines Screen Negative U Methamphetamines Scrn Negative Ur MDMA Scrn (Ecstasy) Negative U Benzodiazepines Scrn Positive H Urine Cocaine Screen Negative U Marijuana (THC) Screen Positive H SARS-CoV-2 (PCR) 08/20/21 08/20/21 08/20/21 08:30 09:11 09:53 WBC RBC Hgb Hct MCV MCH MCHC RDW Plt Count Neut % (Auto) Lymph % (Auto) [place] % (Auto) Eos % (Auto) Baso % (Auto) Neut # (Auto) Lymph # (Auto) [place] # (Auto) Eos # (Auto) Baso # (Auto) PT INR APTT ABG pH 7.47 H ABG pCO2 35.8 ABG pO2 113 H ABG HCO3 26 ABG Total CO2 27 ABG O2 Saturation 99 ABG Base Excess 2.0 FiO2 32 Sodium 140 Potassium 3.4 D Chloride 106 Carbon Dioxide 29 BUN 16 Creatinine 0.86 Estimated GFR > 60 BUN/Creatinine Ratio 18.6 Glucose 112 H Calcium 10.0 Magnesium 0.8 L* Total Creatine Kinase CK-MB (CK-2) CK-MB (CK-2) Rel Index Troponin I Urine Color Urine Appearance Urine pH Ur Specific [place] Urine Protein Urine Glucose (UA) Urine Ketones Urine Occult Blood Urine Nitrate Urine Bilirubin Urine Urobilinogen Ur Leukocyte Esterase Urine RBC Urine WBC Ur Squamous Epith Cells Urine Bacteria Hyaline Casts Ur Culture Indicated? U Opiates 300ng/mL cut Ur Oxycodone Screen Urine Methadone Screen Ur Barbiturates Screen U Tricyclic Antidepress Ur Phencyclidine Scrn Ur Amphetamines Screen U Methamphetamines Scrn Ur MDMA Scrn (Ecstasy) U Benzodiazepines Scrn Urine Cocaine Screen U Marijuana (THC) Screen SARS-CoV-2 (PCR) 08/20/21 08/20/21 09:57 12:40 WBC RBC Hgb 14.4 Hct 42.8 MCV MCH MCHC RDW Plt Count Neut % (Auto) Lymph % (Auto) [place] % (Auto) Eos % (Auto) Baso % (Auto) Neut # (Auto) Lymph # (Auto) [place] # (Auto) Eos # (Auto) Baso # (Auto) PT INR APTT ABG pH ABG pCO2 ABG pO2 ABG HCO3 ABG Total CO2 ABG O2 Saturation ABG Base Excess FiO2 Sodium Potassium Chloride Carbon Dioxide BUN Creatinine Estimated GFR BUN/Creatinine Ratio Glucose Calcium Magnesium 1.8 Total Creatine Kinase CK-MB (CK-2) CK-MB (CK-2) Rel Index Troponin I Urine Color Urine Appearance Urine pH Ur Specific [place] Urine Protein Urine Glucose (UA) Urine Ketones Urine Occult Blood Urine Nitrate Urine Bilirubin Urine Urobilinogen Ur Leukocyte Esterase Urine RBC Urine WBC Ur Squamous Epith Cells Urine Bacteria Hyaline Casts Ur Culture Indicated? U Opiates 300ng/mL cut Ur Oxycodone Screen Urine Methadone Screen Ur Barbiturates Screen U Tricyclic Antidepress Ur Phencyclidine Scrn Ur Amphetamines Screen U Methamphetamines Scrn Ur MDMA Scrn (Ecstasy) U Benzodiazepines Scrn Urine Cocaine Screen U Marijuana (THC) Screen SARS-CoV-2 (PCR) Assessment & Plan Assessment & Plan narrative: 1. Acute embolic CVA -patient with history of ischemic cardiomyopathy, permanent atrial fibrillation and Eliquis anticoagulation with unknown degree of compliance -presents with significant speech impairment, gaze deviation, and a dense left hemiparesis indicative large area of cerebral compromise -CTA indicative of thrombus/embolus distal M3 and M4 branches of right MCA, no significant carotid or posterior circulation narrowing -MRI not possible due to presence of ICD -NPO pending speech therapy eval -NS 100 cc/hour -aspirin 300 mg daily per rectum until able to take p.o. -probably should hold Eliquis for 5-7 days in light of likely large size of infarct -allow permissive hypertension, use IV labetalol 10 mg as needed for BP greater than 220/120 -repeat noncontrast head CT in a.m. -telemetry -PT/OT -likely SNF rehab 2. Leukopenia and thrombocytopenia -previous lab values in March this year were normal -repeat CBC in a.m. to confirm persistence of abnormalities versus DVT prophylaxis: SCD left leg Code status: DNR Surrogate decision maker: Patient's son Time Spent With Patient Critical Care time: I spent a total of [] minutes of critical care time on this patient's care today; this time is exclusive of procedural time.
[2021-08-20] MEDS: SODIUM CHLORIDE 0.9% 1,000 ML 100 ML IV (15:17)
--- NOTE | 2021-08-20 15:31 | DI.ECHO.S_ITS ---
[place] +---------+ [facility] +---------+ : : [address] : [place] : : : : [id number] : : : : Phone: [phone]+ Echocardiogram Report + + :Name: YEISON RODRIGUEZ Study Date: 08/21/2021 Height: 73 in : :[facility] ReadingLocation: Weight: 173 lb : : Gender: Male BSA: 2.0 m2 : :: 1935 Age: 85 yrs BP: 168/74 mmHg: :Reason For Study: STROKE : :Ordering Physician: DANE, : :ROSALBA Performed By: Ami Burgess : :Referring: ROSALBA VELA : + + Interpretation Summary 1) Mildly enlarged left ventricle with moderately to severely reduced systolic function (EF 30-35%). 2) Septal motion is consistent with conduction abnormality. Basal to mid inferior wall, basal inferolateral wall, and basal inferoseptum are akinetic. 3) The right ventricle is not well visualized. The right ventricle is grossly normal size with normal function. There is a pacemaker lead in the right ventricle. 4) There is mild to moderate mitral regurgitation. 5) There is mild aortic regurgitation. 6) Right ventricular systolic pressure is estimated to be 46 mmHg plus the clinically estimated CVP which cannot be estimated on this exam. 7) The ascending aorta is severely enlarged at 5.1cm. 8) Compared to the Echo done 04/27/2021, no significant change. Procedure: A two-dimensional transthoracic echocardiogram with color flow and Doppler was performed. Comparison is made with the echocardiogram of 04/27/2021. The study quality was technically adequate. The patient has a paced rhythm. The patient had occasional PVCs during the exam. The heart rate ranged between 68-88 bpm during the study. Left Ventricle: Left ventricular wall thickness is mildly increased. There is mild concentric left ventricular hypertrophy. The ejection fraction is estimated to be 30-35%. Basal to mid inferior wall, basal inferolateral wall, and basal inferoseptum are akinetic. Septal motion is consistent with conduction abnormality. Right Ventricle: There is a pacemaker lead in the right ventricle. The right ventricle is not well visualized. The right ventricle is grossly normal size. Right ventricular systolic function is at the lower limits of normal. Atria: The left atrium is moderately dilated. The right atrium is mildly dilated. There is no Doppler evidence for an interatrial shunt. Mitral Valve: The mitral valve leaflets appear mildly thickened, but open well. There is mild mitral annular calcification. There is mild to moderate mitral regurgitation. Aortic Valve: The aortic valve is trileaflet. There is mild aortic valve sclerosis. There is no aortic valve stenosis. There is mild aortic regurgitation. Tricuspid Valve: The tricuspid valve is normal in structure and function. There is mild tricuspid regurgitation. Right ventricular systolic pressure is estimated to be 46 mmHg plus the clinically estimated CVP which cannot be estimated on this exam. Pulmonic Valve: The pulmonic valve is not well visualized. There is trace pulmonic regurgitation. Great Vessels: The aortic root is mildly dilated. 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 The IVC is dilated (diameter is greater than 2.1 cm) and it collapses less than 50% with a sniff. This suggests a high right atrial pressure of 15 mm Hg. Pericardium/ Pleura There is no pericardial effusion. There is no pleural effusion. MMode/2D Measurements & Calculations LVIDd: 6.1 cm LVOT diam: 2.3 cm LVIDs: 5.2 cm Ao root diam: 4.2 cm FS: 15.6 % asc Aorta Diam: 5.1 cm IVSd: 1.1 cm LVPWd: 1.3 cm LV crespo. diameter/BSA (cm/m^2): 3.0 LV sys. diameter/BSA (cm/m^2): 2.6 LA A2 area: 26.1 cm2 RA long axis: 5.5 cm LA A4 area: 25.8 cm2 RA area: 21.9 cm2 LA length (vol): 6.3 cm RA vol: 73.9 ml LA vol: 90.4 ml RA : 36.5 ml/m2 LA vol index: 44.7 ml/m2 IVC diam: 2.0 cm TAPSE: 1.7 cm Doppler Measurements & Calculations Ao V2 max: 161.0 cm/sec LVOT Max Zackery: 75.1 cm/sec Ao V2 mean: 109.9 cm/sec LV V1 max P.3 mmHg Ao max P.4 mmHg LV V1 VTI: 11.8 cm Ao mean P.6 mmHg MIKKI(I,D): 1.9 cm2 Ao V2 VTI: 25.8 cm MIKKI(V,D): 2.0 cm2 sev ratio: 0.45 MIKKI indexed to BSA (cm^2/m^2): 0.95 MV E max zackery: 86.1 cm/sec TR max zackery: 341.3 cm/sec MV A max zackery: 0.82 cm/sec TR max P.6 mmHg MV E/A: 105.6 PA V2 max: 121.2 cm/sec Med Peak E' Zackery: 3.9 cm/sec PA V2 mean: 69.4 cm/sec E/E' med: 21.9 PA mean P.3 mmHg MV dec time: 0.28 sec PA pr(Accel): 48.2 mmHg SV(LVOT): 49.7 ml Reading Physician:02:37 PM
--- NOTE | 2021-08-20 16:14 | PC.NURSE ---
admit Pt to AC from ED with VSS. NIH score 19. Pt is alert but drowsy; falls to sleep easily and is confused with answers to some questioning. Pt Denies feeling to left extremities and face. Able to wiggle toes but does not move LUE. L sided facial droop. Speech is garbled but mostly understandable. When assessing pt using stroke packet, pt does not seem to be able to focus visually on pictures and words. able to repeat words back (mama, tiktok, etc) when spoken to him but only seems to visualize part of pictures. when asked to turn his head to the left, pt doens't seem to know how to do that. Pt reaches across with his right hand and grabs his left arm I'm just going to grab your arm here for a minute (while being assisted to turn) while we do this informed pt that he was grabbing his arm, not this RNs as pt unable to feel his left arm. HOB elevated at 30 degrees. Bed alarm on and call light in reach.
[2021-08-20] MEDS: SODIUM CHLORIDE 0.9% FLUSH 10 ML IV (19:52)
--- NOTE | 2021-08-20 23:18 | PC.NURSE ---
Patient is alert and oriented but having speech difficulties; garbled, slurred with poor articulation at times. Has severe left sided neglect with no movement of left UE and weakness of left LE; is able to lift left leg but not maintain. Has no sensation on left side of body. NIH score was 17. Breath sounds CTA with RA sat of 98%. HR sounding irregular but telemetry reading was v-paced. BP elevated at 155/85. Denied nausea. BT present and abdomen is soft. Indwelling catheter is patent; urine is clear homer. Not able to move himself in bed so is being repositioned q2h. Gait not assessed. Has right AKA. Wearing left calf SCD. States he has discomfort in stump but unable to quantify numerically. Fall risk score is high and bed alarm is activated.
[2021-08-21] VITALS (11 sets, daily range): BP systolic 146–167; BP diastolic 75–97; PULSE 64–94; RESP 16–26; TEMP 36.3–37; O2SAT 96–99
[2021-08-21] MEDS: SODIUM CHLORIDE 0.9% 1,000 ML 100 ML IV ×2 (01:01→13:51)
[2021-08-21 05:28] LABS: Add Manual Diff / Slide Review NO; Basophils Absolute Auto 100 /uL (0-100); Basophils Percent Auto 0.6 % (0-2); Eosinophils Absolute Auto 0 /uL (0-450); Eosinophils Percent Auto 0.1 % (2-4); Hematocrit 40.6 % (41-53); Hemoglobin 14.1 g/dL (13.5-17.5); Lymphocytes Absolute Auto 1100 /uL (1100-4500); Lymphocytes Percent Auto 13.4 % (25-40); Mean Corpuscular HGB Conc 34.7 % (30-36); Mean Corpuscular Hemoglobin 30.6 PG (26-34); Mean Corpuscular Volume 88.1 fL (80-100); Monocytes Absolute Auto 700 /uL (0-900); Monocytes Percent Auto 8.9 % (3-14); Neutrophils Absolute Auto 6200 /uL (1500-7000); Platelet Count 136 X10^3/uL (150-400); Red Blood Cell Count 4.61 X10^6/uL (4.5-5.9); Red Cell Distribution Width 14.8 % (11.6-14.8)
[2021-08-21 05:39] LABS: Alanine Aminotransferase 12 IU/L (<50); Albumin 3.6 g/dL (3.5-5.0); Albumin Globulin Ratio 1.4 (1.0-2.8); Alkaline Phosphatase 67 U/L (38-126); Aspartate Aminotransferase 31 IU/L (17-59); BUN Creatinine Ratio 17.9 (6-22); Bilirubin Total 1.9 mg/dL (0.2-1.3); Blood Urea Nitrogen 14 mg/dL (9-20); Calcium 9.4 mg/dL (8.4-10.2); Carbon Dioxide 25 mmol/L (22-32); Chloride 110 mmol/L (98-107); Estimated Glomerular Filt Rate > 60 mL/min (>60); Globulin 2.6 g/dL (1.7-4.1); Glucose 108 mg/dL (80-110); HEMOLYSIS < 15 (0-50); Potassium 3.4 mmol/L (3.4-5.1); Sodium 141 mmol/L (137-145); Total Protein 6.2 g/dL (6.3-8.2)
--- NOTE | 2021-08-21 08:00 | DI.CT.S_ITS ---
PROCEDURE: CT HEAD/BRAIN WO CON INDICATIONS: CVA, f/u CT TECHNIQUE: Noncontrast 4.5 mm thick angled axial sections acquired from the foramen magnum to the vertex, with coronal and sagittal reformats. For radiation dose reduction, the following was used: automated exposure control, adjustment of mA and/or kV according to patient size. COMPARISON: [facility], CT, CT ANGIO HEAD AND NECK, 08/20/2021, 7:42. [facility], CT, CT STROKE, 08/20/2021, 7:42. FINDINGS: Image quality: Excellent. CSF spaces: Basal cisterns are patent. No extra-axial fluid collections. The ventricles are symmetric in size and shape. Brain: Since the prior CT yesterday, there is a large area of infarction involving the right parietal lobe. No intracranial bleeds or masses. There is cerebral volume loss for age with resultant ventricular and sulcal prominence. Periventricular and deep white matter chronic small vessel ischemic changes are seen bilaterally. Intracranial internal carotid artery and vertebral artery atherosclerosis. Skull and face: Calvarium and visualized facial bones appear intact, without suspicious lesions. Sinuses: Visualized sinuses and mastoids are clear. IMPRESSION: 1. Evolving infarction involving most of the right parietal lobe. 2. Small vessel ischemic change and cerebral volume loss. Dictated by: Timothy Romero M.D. on 08/21/2021 at 8:28 Approved by: Timothy Romero M.D. on 08/21/2021 at 8:33
[2021-08-21] MEDS: ASPIRIN 300 MG SUPP PR (09:02)
[2021-08-21] MEDS: SODIUM CHLORIDE 0.9% FLUSH 10 ML IV ×2 (09:02→21:57)
[2021-08-21] MEDS: POTASSIUM CHLORIDE IN WATER 10 MEQ/100 ML PIGGYBACK 100 MEQ IV ×2 (09:15→10:26)
--- NOTE | 2021-08-21 09:20 | PC.RNWOUND ---
Patient resting in bed, turns to left side with assist of staff. Patient has a 2 x 0.2 x 0.05cm linear abrasion in the superior gluteal cleft. This wound is consistent with moisture associated skin damage. Skin inspection reveals moisture trapped in this skin fold causing skin breakdown. This is a partial-thickness wound with no exudate noted. This wound is gently cleansed with saline and dried, a gauze pad is placed to absorb moisture and a bordered foam for protection to this vulnerable area, which is at risk of further breakdown/ pressure if not kept clean, dry, protected. Primary nurse aware.
--- NOTE | 2021-08-21 10:47 | PT.IIE ---
Medical History (Last Reviewed 08/20/21 @ 08:10 by Marlyn Harrell DO) Amputation of leg, right, traumatic Cellulitis of right axilla Constipation Ischemic cardiomyopathy Weight loss observed on examination Physical Therapy Inpatient Evaluation/Re-Eval M1 PT/OT-IP Prior Functional Status Start: 08/21/21 12:25 Freq: NEEDED Status: Active Protocol: Document 08/21/21 10:47 AB (Rec: 08/21/21 12:38 AB [id number]) Medical Review Prior Functional Status Medical History Reviewed Yes Mobility and Gait son in room and provided info regarding pt but pt also provided some info but not consistent with answering questions pt stated that he is usually in bed and only gets up when he needs to; able to squat pivot bed<>w/c mod I and use the toilet but mostly uses his urinal in bed. stated that his roommate assists him with his shower needs. Son stated that pt is mostly bed bound and only gets out of the bed if he needs to use the toilet for bowel needs. pt also has not used his prosthesis for ~ 10 years and has not ambulated since then Social History Household Members friend(s) Living Arrangements House Number of Floors (Floors) One Floor Number of Stairs To Enter/Railing? no steps to enter Home Environment Standard Height Toilet,Walk in Shower,Built-In Shower Seat Home Equipment Manual Wheelchair,Hand Held Shower,Grab Bars Near Toilet, Grab Bars In Shower Additional Social History Comment Son stated that there is a couple that lives with the pt but are not his caregivers M2 PT-IP Current Condition Start: 08/21/21 12:25 Freq: NEEDED Status: Active Protocol: Document 08/21/21 10:47 AB (Rec: 08/21/21 12:38 AB [id number]) Physical Therapy Current Condition Current Condition Evaluation Date 08/21/21 Treatment Diagnosis CVA; generalized weakness Onset Date 08/20/21 M3 PT-IP Subjective Start: 08/21/21 12:25 Freq: NEEDED Status: Active Protocol: Document 08/21/21 10:47 AB (Rec: 08/21/21 12:38 AB [id number]) Subjective Physical Therapy Visit Type Type Initial Evaluation Visit Start Time 10:47 Visit Stop Time 11:15 Total Visit Minutes 28 Number of PILLOW AGENT Visits 0 M4 PT-IP Mobility and Gait Start: 08/21/21 12:25 Freq: NEEDED Status: Active Protocol: Document 08/21/21 10:47 AB (Rec: 08/21/21 12:38 AB [id number]) PT-Bed Mobility Assessment Supine to Sit Supine to Sit Total Assistance,2 Person Assistance,Head of Bed Elevated,Bedrails Sit to Supine Sit to Supine Total Assistance,2 Person Assistance Scooting Scooting to Edge of Bed Maximum Assistance PT-Transfer Assessment Comments Mobility Comments completed supine to sit total A x 2 and max cues with HOB elevated. pt requiring total A for sitting balance on EOB. increase lateral trunk lean to the R and not able to center trunk midline. pt unable to make eye contact with eye gaze upwards to the R . pt tolerated sitting for ~ 5 min and assisted back to bed total A x 2 and max cues. pt needs to get clean up. left pt with NAC and nurse. PT-Balance Assessment Sitting Balance and Reactions Static Sitting Balance Ability Poor Dynamic Sitting Balance Ability Poor M5 PT-IP Objective Assessments Start: 08/21/21 12:25 Freq: NEEDED Status: Active Protocol: Document 08/21/21 10:47 AB (Rec: 08/21/21 12:38 AB [id number]) Orientation Orientation/Cognition Level of Alertness Confusional State Safety Awareness Decreased Safety Awareness Memory Description Short Term Impaired,Senior Care Impaired Strength Lower Extremity Strength Assessment Left Impaired Hip 3-/5 Knee 3-/5 Muscle Tone Muscle Tone WNL Yes M6 PT-IP Treatment Start: 08/21/21 12:25 Freq: NEEDED Status: Active Protocol: Document 08/21/21 10:47 AB (Rec: 08/21/21 12:38 AB [id number]) Physical Therapy Treatment Education Education Provided Safety M7 PT-IP Assessment and Plan Start: 08/21/21 12:25 Freq: NEEDED Status: Active Protocol: Document 08/21/21 10:47 AB (Rec: 08/21/21 12:38 AB [id number]) PT Summary Assessment and Plan Potential Rehabilitation Potential Fair Status of Condition at Evaluation Evolving Summary Impairments Pain,ROM,Strength,Balance, Coordination,Sensation,Tone, Cognition,Bed Mobility, Transfers,Gait,Activity Tolerance Assessment Summary pt requiring total A x 2 and unable to transfer. pt with previous R AKA and now have CVA with L sided weakness. pt will require 24/7 assist and needs SNF rehab at this time. will continue to assess progress. Goals Bed Mobility Goal Moderate Assistance Transfer Goal Moderate Assistance Frequency of Treatment Frequency Of Treatment Once a Day Treatment Plan Physical Therapy Treatment Plan Bed Mobility Training,Transfer Training,Gait Training, Therapeutic Exercise,Balance Retraining,Discharge Planning, Hot or Cold Pack,Neuromuscular Re-ed,Coordination Retraining ,Manual Therapy Precautions Other Precautions falls Recommendations To Nursing Amount of Assist Needed Mechanical Lift Discharge Recommendations PT Discharge Recommendations SNF Rehab Transportation Needs at Discharge Stretcher/Ambulance
--- NOTE | 2021-08-21 12:48 | SLP.IPNOTE ---
Attempted to see pt for swallow evaluation. Pt was with Nsg. Will reattempt later in the day.
--- NOTE | 2021-08-21 13:43 | CM.DANOTE ---
Patient is an 85 yo male who was admitted on 08/20/21 for Stroke. Pt has [facility] MCR for insurance and his PCP is Dr. Filemon Nathan. EMR was reviewed. Per MD, pt with hx of right AKA 50 yrs ago and chronic AFIB and phantom limb pain at baseline and admitted for Acute Stroke. Pt currently NPO as ST attempted swallow trials to determine if pt will be able to be safe taking anything by mouth. Per PT/OT, pt significantly impaired and total assist at this time and not appropriate for Acute Rehab but below baseline due to his right above knee amputation and left side neglect and recommending SNF at d/c. SW met bedside with pt (who is oriented and able to participate some but garbled speech and drowsy) and son/JOHN Jai and explained role. Son confirms that pt lives in [place] and has roommates who are a middle aged couple that help assist pt with chores around the house, meals, and bathing and son states that pt is typically mostly bedbound the past year but could self pivot transfer to / and that pt had been managing well until this stroke. Son denies any hx of HH or SNF at least for the past 10 years but they have been discussing pt getting more to a point of not having much of a quality of life and feeling like he had lived a good life and would be fine with passing away. Son confirms pt's Living Will states DNR and no artificial nutrition. JAMES discussed at length possible options of SNF under AARP and provided SNF Choice List and preference would be 1) [facility] 2) [facility] as Jai lives in [place] and his brother lives in [facility]. SW discussed the purpose of SNF rehab vs comfort measures. Discussed at length Comfort Care/Hospice services and possible option of home but with family or PP CG support and Hospice vs Comfort Care at SNF. SW provided the Senior Resource Guidebook and earmarked PP CG agencies. Son very appreciative and plans to discuss this all with his brother this evening and ST to work again with pt soon to determine if he remains NPO vs modified diet and son feels this will determine path of SNF rehab vs Comfort Care and son is leaning towards SNF at [place] at d/c and to determine rehab vs comfort. SW discussed the coverage by [facility] for Comfort measures at SNF and son now aware room and board would not be covered by insurance (maybe only initially for a couple days and then private pay). SW called [facility] and left msg with new referral and pt situation and faxed clinicals to review for SNF rehab vs Comfort Care. Plan: SW to follow closely for ST eval to determine if pt remains NPO to determine rehab vs Comfort Care and ongoing discussion with johnathon Vergara on discharge plan. LYNN Bernabe Discharge Planning/Care Management Advanced directive, confirm from FAMILY Start: 08/20/21 14:50 Freq: Q24H Status: Active Protocol: Document 08/20/21 14:50 TLS (Rec: 08/20/21 15:56 TLS [id number]) Advance Directive, confirm on record Time 14:20 Person contacted Jai Lin Copy received No CM Discharge Assessment Start: 08/21/21 13:36 Freq: Status: Active Protocol: Document 08/21/21 13:39 BF (Rec: 08/21/21 13:43 BF [id number]) Discharge Planning Assessment Assigned J2Ee Consultant LYNN Browne DPOA/Assigned Designee Name Johnathon Vergara Contact Information [phone] Advance Directives? Yes Advance Directives on File No: son to provide History Provided By Patient,Family Member,Medical Record Has Patient been admitted in last 30 No days? Prior Living Arrangements House Household Members friend(s) Type of transporation used prior to Relies on Others admit Independent with ADL's Yes: somewhat, help with food and bathing Is patient alert and oriented? Yes Caregiver for Another No DME Already Rented / Owned Bath Bench,Wheelchair Patient/Family Preference Penitent[facility] Facility Comment SNF rehab vs Comfort Care Barriers to Discharge No Discharge Plan Penitentiary Facility Transportation Arrangement Likely facility van vs BLS transport Referrals Initiated Penitentiary Additional Comment Pending possible Comfort Care/ Hospice Medicare Choice List Provided Yes SNF/HH Preference [facility] or [facility] Has Agency SNF been contacted Yes Whiteboard Updated in Patient Room with Yes name and ext. # of J2Ee Consultant Review Status In Process Please Provide Date Initial DC 08/21/21 Assessment Was Performed Next Review Type Continued Stay Review
--- NOTE | 2021-08-21 13:50 | OT.IPNOTE ---
Attempted OT eval and pt falling asleep in and out and not fully awake. Pt just completed SENIOR SPECIALIST before Ot came in. Able to talk to pt's son regarding prior level of care. Pt's son states that the quality of his dad's life was declining and having have multiple falls in the past 2 years. In addition lately only gets out of bed once every day or two. No charge and to see pt tomorrow for OT eval.
--- NOTE | 2021-08-21 16:22 | DI.RAD.S_ITS ---
PROCEDURE: XR CHEST 1V INDICATIONS: sob TECHNIQUE: One view of the chest was acquired. COMPARISON: [facility], CR, XR CHEST 2 VIEWS, 06/11/2021, 17:50. [facility], CR, CHEST 2 VIEW, 08/29/2010, 13:21. FINDINGS: Surgical changes and devices: Sternotomy wires and mediastinal clips are present. A cardiac pacemaker is seen with pulse generator in the left chest. Lungs and pleura: Hazy opacities are seen at the left lung base, which obscure the left costophrenic angle. No pleural effusions or pneumothorax. Mediastinum: Mediastinal contours appear normal. Heart size is normal. Bones and chest wall: No suspicious bony lesions. Overlying soft tissues appear unremarkable. IMPRESSION: Hazy opacities at the left lung base may be secondary to edema and a small pleural effusion versus atelectasis or pneumonia. Dictated by: Larry Muñoz M.D. on 08/21/2021 at 17:01 Approved by: Larry Muñoz M.D. on 08/21/2021 at 17:02
[2021-08-21] MEDS: FUROSEMIDE 40 MG/4 ML VIAL IV (16:34)
--- NOTE | 2021-08-21 16:46 | ST.IPCSEOM ---
Visit Care Team Role Provider Type Filemon Nathan DO Primary Care Provider Physician Specialty: Family Practice Address: [address] [place] [address], [id number] Email: [email or web address] Marlyn Harrell DO Emergency Provider Physician Referring Provider Specialty: Emergency Medicine Address: [address] [place] [address], [id number] Email: [email or web address] Herrera Proctor MD Admit Provider Physician Attending Provider Specialty: Internal Medicine Address: [address] [place] [address], [address] Email: 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) Past Medical History (Last Reviewed 08/20/21 @ 08:10 by Marlyn Harrell DO) Amputation of leg, right, traumatic (Medical) Cellulitis of right axilla (Medical) Constipation (Medical) Ischemic cardiomyopathy (Medical) Weight loss observed on examination (Medical) Speech-Language Pathology Swallow Evaluation CHAINSTITCH ELASTIC ATTACHER Clinical Instructor Line Start: 08/21/21 16:26 Freq: Status: Active Protocol: Document 08/21/21 16:26 REYNALDO (Rec: 08/21/21 16:26 REYNALDO [id number]) Clinical Instructor Signature Clinical Instructor Clinical Instructor Yes CHAINSTITCH ELASTIC ATTACHER Clinical Swallow Evaluation Start: 08/21/21 14:52 Freq: Status: Active Protocol: Document 08/21/21 14:53 EK (Rec: 08/21/21 15:15 EK [id number]) Clinical Swallow Evaluation Session Time Visit Start Time 12:00 Visit Stop Time 12:30 Total Visit Minutes 30 Visit Information Visit Number 1 Referral Referring Provider Herrera Proctor MD Reason for Referral CVA Setting Assessment Location Acute Care Visit Type Note Type Initial evaluation Next Note Type Next Note Type Treatment Note Patient Information Identification Type Name,Wristband History Pt is a 85-year-old male who was brought into the emergency department 08/19/21 for stroke symptoms. ED reported pt to be dysarthric with a left facial droop and left hemiparesis. Head CT showed subtle loss of navarro white matter differentiation in right parietal temporal lobes consistent with acute infarct. CTA showed enhancement in distal M3 and M4 branches of right MCA concerning for thrombus/embolus. Follow up CT scan on 08/21/21 showed: ? evolving infarction involving most of the right parietal lobe. Small vessel ischemic change and cerebral volume loss?. Pt's son reported that prior to stroke, the pt's only difficulty was mild dementia symptoms. Pt's son specifically stated that before the stroke the pt had no difficulty swallowing or engaging in conversations. Subjective Observations Pt was awake and sitting in bed with his son present in the room upon CHAINSTITCH ELASTIC ATTACHER and CHAINSTITCH ELASTIC ATTACHER sports team marketing intern arrival. Pt was slightly reclined and was repositioned to an upright position by CHAINSTITCH ELASTIC ATTACHER and CHAINSTITCH ELASTIC ATTACHER sports team marketing intern prior to starting exam. Pt appeared fatigued as evidenced by overall delayed response time during assessment, listing to the right, and closing his eyes inbetween tasks. Of note, while pt was listing to the right, his head was also completely turned to the right and eyes were primarily focused on upper right quadrant of his vision field. Pt did not make eye contact but did attempt to look at spoon and cup during trials when instructed. Several times the pt attempted conversation, speech was noted to be slurred and difficult to understand. At times, pt's responses did not seem on-topic to the conversation. Objective Assessment Mental Status Cooperative,Confused,Lethargic Oral Integrity Excessive saliva/Drooling Dentition Decay Lip Function Moderate impairment Observation of Lips at Rest Left sided weakness/Drooping Tongue Function Moderate impairment Tongue Protrusion Reduced range of motion, Reduced strength Tongue Lateralization Reduced range of motion, Incoordination Jaw Function Moderate impairment Observations of Jaw at Rest Deviates to the left Jaw Opening Within normal limits Jaw Closing Within normal limits Hard/Soft Palate Function Within normal limits Observations of Hard/Soft Palate Within normal limits Respiratory Sufficiency Within normal limits Comment Oral Mechanism Exam was not completed due to the patient having difficulty staying awake inbetween tasks. Pt's son reported that prior to stroke, the pt had no difficulty swallowing. Pt had natural teeth with mild decay noted. Overall left facial droop was noted with an overall weakness. Pt's tongue had limited range of motion, particularly for protrusion, elevation, and depression. Mild white tongue coating was initially noted, possibly due to dehydration. Moderate drooling was noted on the right side of the pt's mouth. Food and Liquid Trials Position During Assessment Upright (90 degrees) Liquids Trialed Ice chips,Thin Solids Trialed Puree Administration Type Tea spoon,Cup single sip,Straw ,Self-feeding,Needs some assistance Oral Impairment Moderately impaired Oral Phase Comments Trialed ice chips, water, and applesauce. When CHAINSTITCH ELASTIC ATTACHER sports team marketing intern administered teaspoon of water, pt was unable to keep the water in his mouth did not wrap his tongue/lips around the spoon. However, pt successfully swallowed water when he self-administered a sip of water; pt was also successful with a straw, however, pt started to take too large of sips with the straw and thus was discontinued. CHAINSTITCH ELASTIC ATTACHER sports team marketing intern offered spoon of applesauce to pt but pt didn't initiate self-feeding. However, when applesauce was administered, his lips did wrap around the spoon. Mild oral residue was initially noted, pt cleared the residue after second swallow. No other textures were trialed today due to pt's overall weakness. Oral phase can be categorized as moderately-severely impacted. Pharyngeal Impairment Within functional limits Pharyngeal Phase Comments No overt signs of penetration or aspiration were noted. Swallow appeared to be WFL for the two types of textures trialed, more evaluation will be needed. Fatigue/Endurance Mild fatigue Comment Difficult to ascertain pt's fatigue from eating due to somnolence throughout the course of the evaluation. [place] Swallow Protocol No Findings Swallowing Function Oral phase dysphagia Swallowing Function Comments Possible pharyngeal dysphagia, further assessment needed Severity of Swallow Impairment Moderately-severely impaired Contributing Factors to Swallow Reduced alertness or attention Impairment ,Difficulty following directions,Reduced oral strength/coordination/ sensation Prognosis Fair Based on Cognitive status,Family support,Age,Duration of symptoms/severity Comment Exhibited oral phase dysphagia with limited trials and pharyngeal phase of swallow will continue to be assessed. No overt signs of penetration/ aspiration noted today. Impact on Safety and Functioning Risk for aspiration Comments Further evaluation with other textures needed. Recommendations Instrumental Assessment No Swallowing Treatment Yes Frequency 1x daily over course of hospital stay Recommended Solids Puree Recommended Liquids Thin Safety Precautions/Swallowing Supervision needed for all Recommendations meals,1 to 1 close supervision ,Feed only when alert,Reduce distractions,Remain upright ( 90 degrees) during all oral intake,Needs verbal cues to use recommended strategies, Upright position at least 30 minutes after meals,Small bites and sips when eating, Slow rate; swallow between bites,No straw,Sensory enhancement (flavor, texture, temperature),Set-up assistance ,Strict oral care after intake ,Check for pocketing Medication Recommendations Whole in Carrier Discharge Recommendations nursing home facility Education Patient/Caregiver Education Described results of evaluation,Family/caregivers expressed understanding of evaluation,Family/caregivers expressed agreement with goals & treatment plans,Family/ caregivers expressed understanding of safety precautions,Family/caregivers expressed understanding of feeding recommendations, Patient requires further education/training,Family/ caregivers require further education/training Goals Short-term Goals 1. Pt will participate in further evaluation in order to assess and treat swallow. 2. Pt will follow safe swallow strategies with prompts. 3. Pt/caregiver will receive education regarding safe swallow strategies and importance of oral hygiene in preventing aspiration pneumonia. Long-term Goals 1. The pt will safely tolerate least restrictive diet to meet nutrition and hydration needs.
[2021-08-21] MEDS: AMLODIPINE 5 MG TABLET PO (17:18)
[2021-08-21 17:21] LABS: Hematocrit 43.3 % (41-53); Hemoglobin 15.1 g/dL (13.5-17.5); Mean Corpuscular HGB Conc 34.9 % (30-36); Mean Corpuscular Hemoglobin 30.4 PG (26-34); Mean Corpuscular Volume 87.1 fL (80-100); Platelet Count 134 X10^3/uL (150-400); Red Blood Cell Count 4.97 X10^6/uL (4.5-5.9); Red Cell Distribution Width 14.8 % (11.6-14.8); White Blood Cell Count 7.8 X10^3/uL (4.5-11.0)
[2021-08-21 17:38] LABS: Alanine Aminotransferase 13 IU/L (<50); Albumin 4.1 g/dL (3.5-5.0); Albumin Globulin Ratio 1.3 (1.0-2.8); Alkaline Phosphatase 74 U/L (38-126); Aspartate Aminotransferase 35 IU/L (17-59); Bilirubin Total 2.6 mg/dL (0.2-1.3); Blood Urea Nitrogen 14 mg/dL (9-20); Calcium 9.6 mg/dL (8.4-10.2); Carbon Dioxide 22 mmol/L (22-32); Chloride 109 mmol/L (98-107); Estimated Glomerular Filt Rate > 60 mL/min (>60); Globulin 3.1 g/dL (1.7-4.1); Glucose 108 mg/dL (80-110); HEMOLYSIS < 15 (0-50); Lactate (Lactic Acid) 1.7 mmol/L (0.7-2.1); Potassium 3.4 mmol/L (3.4-5.1); Sodium 142 mmol/L (137-145); Total Protein 7.2 g/dL (6.3-8.2)
[2021-08-21 17:47] LABS: NT-proBNP (BNP-Adult 18+) 5140 pg/mL (<450)
[2021-08-21 18:23] LABS: Troponin I 0.191 ng/mL (0.01-0.034)
--- NOTE | 2021-08-21 20:16 | PM.PN.1 ---
Subjective Subjective Date Patient Seen: 08/21/21 Time Patient Seen: 08:00 Interval history: Today he developed shortness of breath. No chest pain. No cough. Did feel as if he could not take a deep breath. Was diaphoretic. He did work with speech therapy and was able to swallow but did choke slightly. Exam Vital Signs (past 8 hours): - 08/21/21 14:17 08/21/21 17:14 08/21/21 19:43 Temperature 98.6 F 97.4 F L Pulse Rate 88 94 H Respiratory Rate 20 20 Blood Pressure 150/92 H 167/97 H Pulse Oximetry 96 98 96 Oxygen Delivery Method Room Air Oxygen Flow Rate 0 Narrative Exam Narrative: GEN: chronically ill appearing, diaphoretic, moderate respiratory distress PULM: crackles bilaterally CV: regular rate and rhythm, no murmurs ABD: soft, nontender, nondistneded EXT: warm and well perfused, right aka NEURO: flaccid left side, facial droop on right, oriented and conversant, speech is dysarthric Objective Labs Result Diagrams: 08/21/21 17:13 08/21/21 17:13 Labs: Laboratory Results - last 24 hr 08/21/21 08/21/21 08/21/21 05:15 05:15 17:13 WBC 8.0 D 7.8 RBC 4.61 4.97 Hgb 14.1 15.1 Hct 40.6 L 43.3 MCV 88.1 87.1 MCH 30.6 30.4 MCHC 34.7 34.9 RDW 14.8 14.8 Plt Count 136 L 134 L Neut % (Auto) 77.0 H Lymph % (Auto) 13.4 L [place] % (Auto) 8.9 Eos % (Auto) 0.1 L Baso % (Auto) 0.6 Neut # (Auto) 6200 Lymph # (Auto) 1100 [place] # (Auto) 700 Eos # (Auto) 0 Baso # (Auto) 100 Sodium 141 Potassium 3.4 Chloride 110 H Carbon Dioxide 25 BUN 14 Creatinine 0.78 Estimated GFR > 60 BUN/Creatinine Ratio 17.9 Glucose 108 Lactate Calcium 9.4 Total Bilirubin 1.9 H AST 31 ALT 12 Alkaline Phosphatase 67 Troponin I NT-Pro-B Natriuret Pep Total Protein 6.2 L Albumin 3.6 Globulin 2.6 Albumin/Globulin Ratio 1.4 08/21/21 08/21/21 08/21/21 17:13 17:13 17:13 WBC RBC Hgb Hct MCV MCH MCHC RDW Plt Count Neut % (Auto) Lymph % (Auto) [place] % (Auto) Eos % (Auto) Baso % (Auto) Neut # (Auto) Lymph # (Auto) [place] # (Auto) Eos # (Auto) Baso # (Auto) Sodium 142 Potassium 3.4 Chloride 109 H Carbon Dioxide 22 BUN 14 Creatinine 0.70 Estimated GFR > 60 BUN/Creatinine Ratio 20.0 Glucose 108 Lactate 1.7 Calcium 9.6 Total Bilirubin 2.6 H AST 35 ALT 13 Alkaline Phosphatase 74 Troponin I 0.191 H* NT-Pro-B Natriuret Pep 5140 H Total Protein 7.2 Albumin 4.1 Globulin 3.1 Albumin/Globulin Ratio 1.3 PFSH Medical History Amputation of leg, right, traumatic Cellulitis of right axilla Constipation Ischemic cardiomyopathy Weight loss observed on examination Social History household members: friend(s) Smoking Status: Former smoker alcohol intake: never Assessment & Plan Assessment & Plan narrative: 1. Acute embolic CVA -patient with history of ischemic cardiomyopathy, permanent atrial fibrillation and Eliquis anticoagulation with unknown degree of compliance -presents with significant speech impairment, gaze deviation, and a dense left hemiparesis indicative large area of cerebral compromise -CTA indicative of thrombus/embolus distal M3 and M4 branches of right MCA, no significant carotid or posterior circulation narrowing -MRI not possible due to presence of ICD -repeat CT head shows large evolving infarction involving most of right parietal lobe -dysphagia diet -aspirin 81mg daily -probably should hold Eliquis for at 2-3 weeks in light of large size of infarct -allow permissive hypertension, use IV labetalol 10 mg as needed for BP greater than 220/120 -telemetry -PT/OT 2. Ischemic cardiomyopathy with acute CHF exacerbation and possible NSTEMI -suspect respiratory distress is secondary to fluid overload from IV fluid in a patient with cardiomyopathy -xray shows volume overload -BNP elevated -initial troponin elevated as well, suspect caused by CHF exacerbation, will continue to trend -ECHO ordered which shows known cardiomyopathy -already ordered for aspirin, will order statin -would not given heparin for now given concern for hemorrhagic transformation 3. Leukopenia and thrombocytopenia -previous lab values in March this year were normal -repeat CBC in a.m. to confirm persistence of abnormalities versus Dispo: spoke with son who agrees with hospice referral, is still deciding between hospice and rehab Time Spent With Patient Critical Care time: I spent a total of [] minutes of critical care time on this patient's care today; this time is exclusive of procedural time. Quality VTE Deep Vein Thrombosis/Pulmonary Embolism Present on Admission: No
[2021-08-21] MEDS: ATORVASTATIN 20 MG TABLET 40 MG PO (21:32)
[2021-08-21] MEDS: METOPROLOL ER 50 MG TABLET PO (21:32)
[2021-08-22] VITALS (17 sets, daily range): BP systolic 142–160; BP diastolic 66–90; PULSE 65–103; RESP 15–18; TEMP 35.7–36.8; O2SAT 93–98
[2021-08-22 05:03] LABS: Hematocrit 44.1 % (41-53); Hemoglobin 15.6 g/dL (13.5-17.5); Mean Corpuscular HGB Conc 35.3 % (30-36); Mean Corpuscular Hemoglobin 30.9 PG (26-34); Mean Corpuscular Volume 87.3 fL (80-100); Platelet Count 131 X10^3/uL (150-400); Red Blood Cell Count 5.05 X10^6/uL (4.5-5.9); Red Cell Distribution Width 14.6 % (11.6-14.8); White Blood Cell Count 7.9 X10^3/uL (4.5-11.0)
[2021-08-22 05:25] LABS: BUN Creatinine Ratio 20.3 (6-22); Blood Urea Nitrogen 15 mg/dL (9-20); Calcium 9.6 mg/dL (8.4-10.2); Carbon Dioxide 25 mmol/L (22-32); Chloride 106 mmol/L (98-107); Estimated Glomerular Filt Rate > 60 mL/min (>60); Glucose 114 mg/dL (80-110); HEMOLYSIS 16 (0-50); Sodium 140 mmol/L (137-145)
[2021-08-22 05:34] LABS: Troponin I 0.174 ng/mL (0.01-0.034)
[2021-08-22] MEDS: ASPIRIN EC 81 MG TABLET PO (08:30)
[2021-08-22] MEDS: METOPROLOL ER 50 MG TABLET PO ×2 (08:30→20:35)
[2021-08-22] MEDS: AMLODIPINE 5 MG TABLET PO (08:31)
[2021-08-22] MEDS: SODIUM CHLORIDE 0.9% FLUSH 10 ML IV ×2 (08:36→20:35)
--- NOTE | 2021-08-22 09:56 | SLP.IPNOTE ---
Attempted to see pt at 9:40. Pt was sleeping when JEWEL GAUGER arrived, but awoke to verbal greeting. He answered questions with mumbled and rambling speech and fell asleep during conversation. Not appropriate for PO trials at this time, will attempt later today.
[2021-08-22] MEDS: POTASSIUM CHLORIDE 20 MEQ/15 ML UDC 40 MEQ PO ×2 (11:03→18:29)
[2021-08-22] MEDS: CITALOPRAM 10 MG TABLET 40 MG PO (11:03)
[2021-08-22] MEDS: TAMSULOSIN 0.4 MG CAPSULE PO (11:04)
--- NOTE | 2021-08-22 11:46 | PT.IIE ---
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) Medical History (Last Reviewed 08/20/21 @ 08:10 by Marlyn Harrell DO) Amputation of leg, right, traumatic Cellulitis of right axilla Constipation Ischemic cardiomyopathy Weight loss observed on examination Physical Therapy Inpatient Evaluation/Re-Eval M1 PT/OT-IP Prior Functional Status Start: 08/21/21 12:25 Freq: NEEDED Status: Active Protocol: Document 08/22/21 11:42 [facility] (Rec: 08/22/21 12:31 [facility] [id number]) Medical Review Prior Functional Status Medical History Reviewed Yes Communication Independent Mobility and Gait son in room and provided info regarding pt but pt also provided some info but not consistent with answering questions pt stated that he is usually in bed and only gets up when he needs to; able to squat pivot bed<>w/c mod I and use the toilet but mostly uses his urinal in bed. stated that his roommate assists him with his shower needs. Son stated that pt is mostly bed bound and only gets out of the bed if he needs to use the toilet for bowel needs. pt also has not used his prosthesis for ~ 10 years and has not ambulated since then Activities of Daily Living and IADL's Pt prior needing assist with shower and otherwise lately not getting himself dressed and mainly just in bed. Social History Household Members friend(s) Living Arrangements House Number of Floors (Floors) One Floor Number of Stairs To Enter/Railing? no steps to enter Home Environment Standard Height Toilet,Walk in Shower,Built-In Shower Seat Home Equipment Manual Wheelchair,Hand Held Shower,Grab Bars Near Toilet, Grab Bars In Shower Additional Social History Comment Son stated that there is a couple that lives with the pt but are not his caregivers M2 PT-IP Current Condition Start: 08/21/21 12:25 Freq: NEEDED Status: Active Protocol: Document 08/21/21 10:47 AB (Rec: 08/21/21 12:38 AB [id number]) Physical Therapy Current Condition Current Condition Evaluation Date 08/21/21 Treatment Diagnosis CVA; generalized weakness Onset Date 08/20/21 M3 PT-IP Subjective Start: 08/21/21 12:25 Freq: NEEDED Status: Active Protocol: Document 08/22/21 11:46 AB (Rec: 08/22/21 12:40 AB [id number]) Subjective Physical Therapy Visit Type Type Treatment Note Visit Start Time 11:46 Visit Stop Time 12:08 Total Visit Minutes 21 Number of DIE KEEPER Visits 0 Physical Therapy Visit Comments Patient Comments agreeable to do PT M4 PT-IP Mobility and Gait Start: 08/21/21 12:25 Freq: NEEDED Status: Active Protocol: Document 08/22/21 11:46 AB (Rec: 08/22/21 12:40 AB [id number]) PT-Bed Mobility Assessment Rolling Type of Rolling Log Rolling Level of Assist Maximal Assistance,1 Person Assistance,2 Person Assistance Supine to Sit Supine to Sit Maximum Assistance,2 Person Assistance,Head of Bed Elevated,Bedrails Sit to Supine Sit to Supine Maximum Assistance,2 Person Assistance,Bedrails Scooting Scooting to Edge of Bed Dependent PT-Transfer Assessment Comments Mobility Comments pt in bed and talking more today and able to follow instructions better than yesterday. able to move his head and move eyes to the L with instructions. pt agreed to do PT. Co-tx with OT conducted due to pt complex medical condition requiring 2 person intervention for stability and safety. completed supine to sit max A x 2 and max cues. pt able to move LLE as instructed to EOB with max A and able to lean sideways and forward to sit on EOB with assist max A x2. pt positioned on EOB. continues to require max A x 1-2 for sitting balance but able to correct posture to upright position with prompting. instructed pt to sit by himself and attempted x 4 and pt continues to require max A. pt able to turn head to the L as instructed and identify L side objects but still reverts head back to the R after a few seconds. pt stated that he has to move his bowels. assisted back to laying down position max A x 2 and max cues. positioned pt in bed total A. call light and table placed within reach. informed NAC that pt needs to be cleaned up. M5 PT-IP Objective Assessments Start: 08/21/21 12:25 Freq: NEEDED Status: Active Protocol: Document 08/21/21 10:47 AB (Rec: 08/21/21 12:38 AB [id number]) Orientation Orientation/Cognition Level of Alertness Confusional State Safety Awareness Decreased Safety Awareness Memory Description Short Term Impaired,Facilities Maintenance Engineer Impaired Strength Lower Extremity Strength Assessment Left Impaired Hip 3-/5 Knee 3-/5 Muscle Tone Muscle Tone WNL Yes M6 PT-IP Treatment Start: 08/21/21 12:25 Freq: NEEDED Status: Active Protocol: Document 08/22/21 11:46 AB (Rec: 08/22/21 12:40 AB [id number]) Physical Therapy Treatment Education Education Provided Safety M7 PT-IP Assessment and Plan Start: 08/21/21 12:25 Freq: NEEDED Status: Active Protocol: Document 08/22/21 11:46 AB (Rec: 08/22/21 12:40 AB [id number]) PT Summary Assessment and Plan Potential Rehabilitation Potential Fair Summary Impairments Pain,ROM,Strength,Balance, Coordination,Sensation,Tone, Cognition,Bed Mobility, Transfers,Gait,Activity Tolerance Progress Towards Goals Slow Progress due to Medical Issues,Slow Progress due to Activity Tolerance Assessment Summary pt more alert and able to participate better with PT today but continues to require 2 person assist with all mobilities. pt will need SNF rehab to improve strength and mobility. will continue to assess progress. Goals Bed Mobility Goal Moderate Assistance Transfer Goal Moderate Assistance Other Goals improve sitting balance from P - to F Days to Meet Goals 10 Frequency of Treatment Frequency Of Treatment Once a Day Treatment Plan Physical Therapy Treatment Plan Bed Mobility Training,Transfer Training,Gait Training, Therapeutic Exercise,Balance Retraining,Discharge Planning, Hot or Cold Pack,Neuromuscular Re-ed,Coordination Retraining ,Manual Therapy Precautions Other Precautions falls Recommendations To Nursing Amount of Assist Needed Mechanical Lift Discharge Recommendations PT Discharge Recommendations SNF Rehab Transportation Needs at Discharge Stretcher/Ambulance
--- NOTE | 2021-08-22 12:08 | OT.IP.EVAL ---
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) Past Medical History (Last Reviewed 08/20/21 @ 08:10 by Marlyn Harrell DO) Amputation of leg, right, traumatic Cellulitis of right axilla Constipation Ischemic cardiomyopathy Weight loss observed on examination Occupational Therapy Inpatient Evaluation/Re-Eval M1 PT/OT-IP Prior Functional Status Start: 08/21/21 12:25 Freq: NEEDED Status: Active Protocol: Document 08/22/21 11:42 [facility] (Rec: 08/22/21 12:31 [facility] [id number]) Medical Review Prior Functional Status Medical History Reviewed Yes Communication Independent Mobility and Gait son in room and provided info regarding pt but pt also provided some info but not consistent with answering questions pt stated that he is usually in bed and only gets up when he needs to; able to squat pivot bed<>w/c mod I and use the toilet but mostly uses his urinal in bed. stated that his roommate assists him with his shower needs. Son stated that pt is mostly bed bound and only gets out of the bed if he needs to use the toilet for bowel needs. pt also has not used his prosthesis for ~ 10 years and has not ambulated since then Activities of Daily Living and IADL's Pt prior needing assist with shower and otherwise lately not getting himself dressed and mainly just in bed. Social History Household Members friend(s) Living Arrangements House Number of Floors (Floors) One Floor Number of Stairs To Enter/Railing? no steps to enter Home Environment Standard Height Toilet,Walk in Shower,Built-In Shower Seat Home Equipment Manual Wheelchair,Hand Held Shower,Grab Bars Near Toilet, Grab Bars In Shower Additional Social History Comment Son stated that there is a couple that lives with the pt but are not his caregivers M2 OT-IP Current Condition Start: 08/22/21 12:13 Freq: Status: Active Protocol: Document 08/22/21 11:42 [facility] (Rec: 08/22/21 12:31 [facility] [id number]) Occupational Therapy Current Condition Current Condition Evaluation Date 08/22/21 Treatment Diagnosis CVA Diagnosis Onset Date 08/20/21 M3 OT- IP Subjective and Pain Start: 08/22/21 12:13 Freq: Status: Active Protocol: Document 08/22/21 11:42 [facility] (Rec: 08/22/21 12:31 [facility] [id number]) OT- Subjective Occupational Therapy Visit Type Type Initial Evaluation Visit Start Time 11:42 Visit Stop Time 12:08 Total Visit Minutes 26 Occupational Therapy Visit Comments Patient Comments Pt agreed to get up. Pt's son in the room. Patient/Caregiver Goals Pt's son would like pt to go to skilled rehab. M4 OT- IP ADL's Start: 08/22/21 12:13 Freq: Status: Active Protocol: Document 08/22/21 11:42 [facility] (Rec: 08/22/21 12:31 [facility] [id number]) OT [id number] Comments OT Self-Feeding Comments NOt at meal time. OT ADL-Grooming General Evaluation Grooming Ability Standby Assistance Comments OT Grooming Comments Pt able to wash his face after set-up of wash cloth while in bed. OT ADL-Oral Care General Eval Oral Care Ability Standby Assistance Areas of Assistance Retrieving/Set-Up of Items Comments Oral Care Comments Pt able to swab his mouth out afterset-up and cues for completeness. OT ADL-Dressing General Eval Lower Body Dressing Ability Total Assistance OT ADL-Toileting General Evaluation Toileting Ability Total Assistance OT ADL-Bathing Comments OT Bathing Comments Sponge bath more appropriate at this time. M5 OT- IP IADL's Start: 08/22/21 12:13 Freq: Status: Active Protocol: Document 08/22/21 11:42 [facility] (Rec: 08/22/21 12:31 [facility] [id number]) OT-Instrumental Activities of Daily Living Medication Management Medication Management Caregiver Administers Money Management Money Management Caregiver Provides Assistance Voip Network Engineer Voip Network Engineer Caregiver Provides Assist Driving Driving Concerns Identified Regarding Safety M6 OT- IP Functional Cognition Start: 08/22/21 12:13 Freq: Status: Active Protocol: Document 08/22/21 11:42 [facility] (Rec: 08/22/21 12:31 [facility] [id number]) Cognitive Factors Limiting Selfcare Function Cognitive Ability Level of Alertness Alert Patient Orientation Name Attention Span Ability Capable of Focused Attention, Capable of Sustained Attention Ability to Follow Commands Able to Follow One Step Commands Cognitive Comments Cognitive Assessment Comments Pt able to follow simple commands for ADl and mobility needs. Pt also able to joke around with his son and therapists appropriately. Pt much more alert today. OT- Vision and Hearing OT- Hearing Assessment OT- Hearing Assessment WFL OT- Vision Assessment Occular Pursuits Impaired Horizontal Vision Assessment Comments Pt able to scan to midline and at times past midline to the left but really needing to turn his head to the left. M7 OT- IP Mobility and Balance Start: 08/22/21 12:13 Freq: Status: Active Protocol: Document 08/22/21 11:42 [facility] (Rec: 08/22/21 12:31 [facility] [id number]) OT- Bed Mobility Assessment Supine to Sit Supine to Sit Assist Maximum Assistance,2 Person Assistance Sit to Supine Sit to Supine Assist Maximum Assistance,2 Person Assistance OT-Transfer Assessment Comments Mobility Comments Pt able to assist some with his LLE to move to the edge of the bed with assist from PT. Pt able to assist with his right UE to push up his trunk and also to help lie back down some. Pt needing MAX AX 2. OT- Balance Assessment Sitting Balance and Reactions Static Sitting Balance Ability Poor Comments Other Balance Tests/Deviations/Treatment Pt MAX AX x1 for sitting : balance and able to activate his trunk at times but having difficulty to use his trunk muscles to assist at this time . M8 OT- IP Objective Assessments Start: 08/22/21 12:13 Freq: Status: Active Protocol: Document 08/22/21 11:42 [facility] (Rec: 08/22/21 12:31 [facility] [id number]) OT Gross Range of Motion Upper Extremity Range of Motion Assessment Left Impaired OT Strength Upper Extremity Strength Assessment Left Impaired Comments Strength Comments LUE no movement at this time 0 /5 OT- Coordination Assessment Upper Extremity Finger to Nose Test Left UE Impaired OT-Muscle Tone Assessment Muscle Tone WNL No Muscle Tone Location Left Upper Extremity Type of Tone Hypotonicity OT Sensation Assessment Comments Summary Comments No sensations felt for his LUE at this time. M9 OT- IP Assessment and Plan Start: 08/22/21 12:13 Freq: Status: Active Protocol: Document 08/22/21 11:42 [facility] (Rec: 08/22/21 12:31 [facility] [id number]) OT Summary Assessment and Plan Potential Rehabilitation Potential Fair Analytic Complexity at Evaluation Moderate Summary OT Impairments Range of Motion,Strength, Balance,Coordination,Sensation ,Tone,Functional Mobility,Self -Feeding,Grooming,Dressing, Toileting,Bathing,Toilet Transfers,Shower Transfers, Activity Tolerance Progress Towards Goals Slow Progress due to Medical Issues,Slow Progress due to Activity Tolerance Assessment Summary Pt MOD complexity and acute embolic CVA and now needing extensive assist x2 for all ADl and bed mobility needs. Pt will benefit from skilled rehab to maximize his independence with mobility and ADL needs. Goals Self-Feeding Goal Standby Assistance Grooming Goal Standby Assistance Dressing Goal Moderate Assistance Toileting Goal Moderate Assistance Bathing Goal Moderate Assistance Toilet Transfer Goal Moderate Assistance Shower Transfer Goal Moderate Assistance Days to Meet Goals 60 Frequency of Treatment Frequency Of Treatment Once a Day Treatment Plan OT Treatment Plan ADL Training,Functional Mobility,Vision Retraining, Patient/Family Education, Discharge Planning Other Treatment Recommendations and Next Pt to be able to complete Treatment Focus grooming at edge of bed with MODA for balance. Discharge Recommendations OT Discharge Recommendations SNF Rehab Transportation Needs at Discharge Stretcher/Ambulance
--- NOTE | 2021-08-22 13:48 | CM.DPC ---
DCP Cont. DCP called [facility] to inquire about referral and if they would accept patient. Per Noah @ [facility], they have looked over case and will accept and will start auth. KORIN verbalized that she spoke with Jai, pt son, and he has informed her that they are wanting a rehab bed and not comfort care at this time. Noah states they have openings starting tomorrow and on. KORIN verbalized this information to the hospitalist and he is aware. DCP to continue coordinating care for patient and will keep teams updated on plan. P: When medically stable, pt to discharge to [facility]. Kitty Blakely RN/TRISTANP
--- NOTE | 2021-08-22 15:10 | ST.IPDYTX ---
Visit Care Team Role Provider Type Filemon Nathan DO Primary Care Provider Physician Specialty: Family Practice Address: [address] [place] [address], [id number] Email: [email or web address] [email or web address] Emergency Provider Physician Referring Provider Specialty: Emergency Medicine Address: [address] [place] [address], [id number] Email: [email or web address] Herrera Proctor MD Admit Provider Physician Attending Provider Specialty: Internal Medicine Address: [address] [place] [address], [id number] Email: [email or web address] CHIEF SUSTAINABILITY OFFICER Dysphagia Treatment CHIEF SUSTAINABILITY OFFICER Clinical Instructor Line Start: 08/21/21 16:26 Freq: Status: Active Protocol: Document 08/22/21 15:02 [facility] (Rec: 08/22/21 15:02 [facility] [id number]) Clinical Instructor Signature Clinical Instructor Clinical Instructor Yes CHIEF SUSTAINABILITY OFFICER Dysphagia Treatment Start: 08/22/21 12:52 Freq: Status: Active Protocol: Document 08/22/21 12:52 EK (Rec: 08/22/21 12:54 EK [id number]) Dysphagia Treatment Session Time Visit Start Time 11:00 Visit Stop Time 11:45 Total Visit Minutes 45 Setting Assessment Location Acute Care Visit Type Note Type Treatment Note Patient Information Identification Type Name,ID Wristband Subjective Observations Pt was awake and reclined in bed with nurse and pts? son present in the room upon CHIEF SUSTAINABILITY OFFICER and CHIEF SUSTAINABILITY OFFICER chemist internship arrival. Pt was adjusted to upright position prior to oral trials. Pt appeared more alert and aware compared to yesterday as evidenced by improved eye contact, clearer speech, improved topic maintenance, and keeping head in midline. Treatment Liquids Trialed Thin,Pudding Solids Trialed Puree Administration Type Tea Spoon,Cup Single Sip,Straw ,Self-Feeding,Dependent Feeding Oral Strategies Upright at 90 degrees, Controlled Bite/Sip Size Pharyngeal Strategies Sitting Upright (90 deg),Small Bites and Sips Treatment Activities Observed nurse administration of medication in applesauce and applejuice. Pt had improved oral acceptance of cup and spoon compared to yesterday. Frequent episodes of anterior oral escape when fed liquid by others. Immediate cough and wet vocal quality was observed x1 during assisted feeding; improved vocal quality after instructed to cough hard. During self feeding, pt took appropriately small sips and did not demonstrate any overt signs of penetration/ aspiration. Pt swallowed small teaspoons of pudding with no oral residue or signs of penetration/aspiration. Provided caregiver education RE importance of remaining upright for 20 minutes after eating and oral hygiene in preventing aspiration pneumonia. Assessment Patient Response to Treatment Good Rehab Potential Good Assessment of Improvement Pt was significantly more alert than compared to yesterday. Pt looked at food/ drink without prompting, followed instructions for small sips, and improved lip closure around spoon during assisted feeding. This diet level is still appropriate, however, ongoing assessment is needed to determine least restrictive diet. Pt appears to have greater control over bolus when self- feeding, [id number] assistance may be needed. Diet Recommendations Recommendations Continue Current Diet Liquids Order Thin Diet Order Dysphagia Blenderized Medication Recommendations Whole in Carrier Additional Dietary Needs Encourage to Self-Feed Aspiration Precautions Recommended Precautions Upright at 90 Degrees,Small Bites/Sips,Check for Pocketing ,Liquids from Cup Treatment Plan Placement Recommendation after Discharge [facility] Facility Appropriate for Continued Therapy Yes Therapy Recommendations Continue to see 1x daily over course of hospital stay to monitor progress and further assess/treat deficits as needed. Dysphagia Goals 1. Pt will participate in further evaluation in order to assess and treat swallow. 2. Pt will follow safe swallow strategies with prompts. 3. Pt/caregiver will receive education regarding safe swallow strategies and importance of oral hygiene in preventing aspiration pneumonia. 4. Pt will safely tolerate least restrictive diet to meet nutrition and hydration needs .
--- NOTE | 2021-08-22 17:29 | PM.PN.1 ---
Subjective Subjective Date Patient Seen: 08/22/21 Interval history: Denies complaints today, still tolerating food okay and slowly improving. Exam Vital Signs (past 8 hours): - 08/22/21 09:33 08/22/21 10:00 08/22/21 10:05 Temperature Pulse Rate 88 67 Respiratory Rate 18 Blood Pressure 152/82 H Pulse Oximetry 98 97 08/22/21 11:56 08/22/21 15:46 Temperature 96.3 F L 96.7 F L Pulse Rate 103 H 69 Respiratory Rate 18 17 Blood Pressure 160/90 H 149/79 H Pulse Oximetry 98 97 Oxygen Delivery Method Room Air Oxygen Flow Rate 0 Narrative Exam Narrative: GEN: chronically ill appearing, no acute distress PULM: CTA b/l no wheezing rhonchi or rales. CV: regular rate and rhythm, no murmurs ABD: soft, nontender, nondistneded EXT: warm and well perfused, right aka NEURO: flaccid left side, facial droop on right, oriented and conversant, speech is dysarthric Objective Labs Result Diagrams: 08/22/21 04:25 08/22/21 04:25 Labs: Laboratory Results - last 24 hr 08/21/21 08/21/21 08/21/21 17:13 17:13 17:13 WBC RBC Hgb Hct MCV MCH MCHC RDW Plt Count Sodium 142 Potassium 3.4 Chloride 109 H Carbon Dioxide 22 BUN 14 Creatinine 0.70 Estimated GFR > 60 BUN/Creatinine Ratio 20.0 Glucose 108 Lactate 1.7 Calcium 9.6 Total Bilirubin 2.6 H AST 35 ALT 13 Alkaline Phosphatase 74 Troponin I 0.191 H* NT-Pro-B Natriuret Pep 5140 H Total Protein 7.2 Albumin 4.1 Globulin 3.1 Albumin/Globulin Ratio 1.3 08/21/21 08/22/21 08/22/21 22:50 04:25 04:25 WBC 7.9 RBC 5.05 Hgb 15.6 Hct 44.1 MCV 87.3 MCH 30.9 MCHC 35.3 RDW 14.6 Plt Count 131 L Sodium Potassium Chloride Carbon Dioxide BUN Creatinine Estimated GFR BUN/Creatinine Ratio Glucose Lactate Calcium Total Bilirubin AST ALT Alkaline Phosphatase Troponin I 0.180 H* 0.174 H* NT-Pro-B Natriuret Pep Total Protein Albumin Globulin Albumin/Globulin Ratio 08/22/21 04:25 WBC RBC Hgb Hct MCV MCH MCHC RDW Plt Count Sodium 140 Potassium 3.0 L Chloride 106 Carbon Dioxide 25 BUN 15 Creatinine 0.74 Estimated GFR > 60 BUN/Creatinine Ratio 20.3 Glucose 114 H Lactate Calcium 9.6 Total Bilirubin AST ALT Alkaline Phosphatase Troponin I NT-Pro-B Natriuret Pep Total Protein Albumin Globulin Albumin/Globulin Ratio PFSH Medical History Amputation of leg, right, traumatic Cellulitis of right axilla Constipation Ischemic cardiomyopathy Weight loss observed on examination Social History household members: friend(s) Smoking Status: Former smoker alcohol intake: never Assessment & Plan Assessment & Plan narrative: 1. Acute embolic CVA -patient with history of ischemic cardiomyopathy, permanent atrial fibrillation and Eliquis anticoagulation with unknown degree of compliance -presents with significant speech impairment, gaze deviation, and a dense left hemiparesis indicative large area of cerebral compromise -CTA indicative of thrombus/embolus distal M3 and M4 branches of right MCA, no significant carotid or posterior circulation narrowing -MRI not possible due to presence of ICD -repeat CT head shows large evolving infarction involving most of right parietal lobe -dysphagia diet -aspirin 81mg daily -probably should hold Eliquis for at 2-3 weeks in light of large size of infarct -allow permissive hypertension, use IV labetalol 10 mg as needed for BP greater than 220/120 -telemetry -PT/OT 2. Ischemic cardiomyopathy with acute CHF exacerbation and possible NSTEMI -suspect respiratory distress is secondary to fluid overload from IV fluid in a patient with cardiomyopathy -xray shows volume overload -BNP elevated -initial troponin elevated as well, suspect caused by CHF exacerbation, will continue to trend -ECHO ordered which shows known cardiomyopathy -already ordered for aspirin, will order statin -would not given heparin for now given concern for hemorrhagic transformation -symptoms of respiratory distress now improved. 3. Leukopenia and thrombocytopenia, improved Dispo: spoke with son who agrees with hospice referral, likely discharge to rehab possibly tomorrow. Time Spent With Patient Critical Care time: I spent a total of [] minutes of critical care time on this patient's care today; this time is exclusive of procedural time. Quality VTE Deep Vein Thrombosis/Pulmonary Embolism Present on Admission: No
--- NOTE | 2021-08-22 18:38 | PC.NURSE ---
Pt is AxOx3, more talkative today. VSS, pt denies pain. Pt ate small amt of food and drink. Pt swallowed better than yesterday and holding his cup and drinking from it. Pt is able to makes his needs known if someone is in the room. Pt was much more alert and talkative today and even making jokes. Catheter is draining homer color urine. Last BM 08/22. No other changes. Continue monitor.
[2021-08-22] MEDS: TRAZODONE 50 MG TABLET PO (20:34)
[2021-08-22] MEDS: LORazepam 0.5 MG TABLET 0.25 MG PO (20:34)
[2021-08-22] MEDS: ATORVASTATIN 20 MG TABLET 40 MG PO (20:34)
[2021-08-22 21:12] LABS: HEMOLYSIS < 15 (0-50); Potassium 3.9 mmol/L (3.4-5.1)
[2021-08-23] VITALS (17 sets, daily range): BP systolic 138–162; BP diastolic 76–97; PULSE 3–76; RESP 16–20; TEMP 35.8–37.4; O2SAT 92–96
--- NOTE | 2021-08-23 03:42 | PC.NURSE ---
Shift Notes: Patient was alert and orientedx3, with episode of confusion, noted with left side facial droop and left side weakness, slurred speech noted, and slightly dysphagic. Denies any pain/ discomfort. Vital signs are stable and within acceptable limits. Patient complained of shortness of breath, O2 sat checked >95% at room air, and appears anxious and restless, patient was seen by Dr. Mcintosh this time and ordered PRN ativan. IV accessx2 at right upper extremities, saline locked. Velasquez cath in placed with adequate cloudy yellowish urine output. Turned patient every 2hours. Patient had bowel movement, pericare provided. Will continue to monitor.
[2021-08-23] MEDS: METOPROLOL ER 50 MG TABLET PO ×2 (09:26→20:16)
[2021-08-23] MEDS: ASPIRIN EC 81 MG TABLET PO (09:27)
[2021-08-23] MEDS: TAMSULOSIN 0.4 MG CAPSULE PO (09:27)
[2021-08-23] MEDS: AMLODIPINE 5 MG TABLET PO (09:27)
[2021-08-23] MEDS: CITALOPRAM 10 MG TABLET 40 MG PO (09:27)
[2021-08-23] MEDS: SODIUM CHLORIDE 0.9% FLUSH 10 ML IV ×2 (09:28→20:17)
--- NOTE | 2021-08-23 11:11 | ST.IPDYTX ---
Visit Care Team Role Provider Type Filemon Nathan DO Primary Care Provider Physician Specialty: Family Practice Address: [address] [place] [address], [id number] Email: [email or web address] [email or web address] [email or web address] DO Emergency Provider Physician Referring Provider Specialty: Emergency Medicine Address: [address] [place] [address], [address] Email: [email or web address] [email or web address] Proctor MD Admit Provider Physician Attending Provider Specialty: Internal Medicine Address: [address] [place] [address], [id number] Email: [email or web address] Dysphagia Treatment [employer] Clinical Instructor Line Start: 08/21/21 16:26 Freq: Status: Active Protocol: Document 08/22/21 15:02 REYNALDO (Rec: 08/22/21 15:02 REYNALDO [id number]) Clinical Instructor Signature Clinical Instructor Clinical Instructor Yes [employer] Dysphagia Treatment Start: 08/22/21 12:52 Freq: Status: Active Protocol: Document 08/23/21 11:03 JOSHUA (Rec: 08/23/21 11:10 ZS [id number]) Dysphagia Treatment Session Time Visit Start Time 10:30 Visit Stop Time 11:00 Total Visit Minutes 30 Setting Assessment Location Acute Care Visit Type Note Type Treatment Note Patient Information Identification Type Name,ID Wristband Subjective Observations Pt was awake and upright in bed with pts? son present in the room upon [employer] arrival. Pt 's breakfast tray was present in the room with 95-98% of the food left. Pt's head was turned to the right today. He moved it to midline for bites of food, but returned to the right when he was resting. Treatment Liquids Trialed Thin Solids Trialed Puree Administration Type Tea Spoon,Cup Single Sip,Straw ,Self-Feeding Oral Strategies Upright at 90 degrees, Controlled Bite/Sip Size Pharyngeal Strategies Sitting Upright (90 deg),Small Bites and Sips Treatment Activities Observed pt eat more of breakfast. Pt independently fed himself with cup and spoon and increased lip closure was observed with reduced anterior loss of bolus as compared to yesterday. Two episodes of anterior oral escape observed today, both with thin water through a straw cup. Pt took appropriately small sips and did not demonstrate any overt signs of penetration /aspiration. Mild to moderate oral residue observed following all trials, which pt partially cleared with a swallow when given a verbal prompt. Provided caregiver education RE importance of remaining upright for 20 minutes after eating and oral hygiene in preventing aspiration pneumonia. Assessment Patient Response to Treatment Good Rehab Potential Good Assessment of Improvement Pt looked at food/drink without prompting and improved lip closure around spoon during independent feeding. This diet level is still appropriate, however, ongoing assessment is needed to determine least restrictive diet. Diet Recommendations Recommendations Continue Current Diet Liquids Order Thin Diet Order Dysphagia Blenderized Medication Recommendations Whole in Carrier Additional Dietary Needs Encourage to Self-Feed Aspiration Precautions Recommended Precautions Upright at 90 Degrees,Small Bites/Sips,Check for Pocketing ,Liquids from Cup Treatment Plan Placement Recommendation after Discharge Group Home Facility Appropriate for Continued Therapy Yes Therapy Recommendations Continue to see 1x daily over course of hospital stay to monitor progress and further assess/treat deficits as needed. Dysphagia Goals 1. Pt will participate in further evaluation in order to assess and treat swallow. 2. Pt will follow safe swallow strategies with prompts. 3. Pt/caregiver will receive education regarding safe swallow strategies and importance of oral hygiene in preventing aspiration pneumonia. 4. Pt will safely tolerate least restrictive diet to meet nutrition and hydration needs .
--- NOTE | 2021-08-23 11:38 | PT-IP ANOTE ---
Attempted to see pt at 11:37, pt initially agreeable but ultimately too fatigued to participate w/ PT and requesting to rest. Max A x2 for repositioning in bed. Will check back later.
--- NOTE | 2021-08-23 11:55 | OT.IP.TRT ---
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) Occupational Therapy Treatment Note M2 OT-IP Current Condition Start: 08/22/21 12:13 Freq: Status: Active Protocol: Document 08/22/21 11:42 [facility] (Rec: 08/22/21 12:31 [facility] [id number]) Occupational Therapy Current Condition Current Condition Evaluation Date 08/22/21 Treatment Diagnosis CVA Diagnosis Onset Date 08/20/21 M3 OT- IP Subjective and Pain Start: 08/22/21 12:13 Freq: Status: Active Protocol: Document 08/23/21 10:58 [facility] (Rec: 08/23/21 12:58 [facility] [id number]) OT- Subjective Occupational Therapy Visit Type Type Treatment Note Visit Start Time 10:58 Visit Stop Time 11:30 Total Visit Minutes 32 Occupational Therapy Visit Comments Patient Comments Pt initially agreed to get up, but got sleepy and decided to just stay in bed. Pt's son in the room initially. Patient/Caregiver Goals To go to skilled rehab. OT Pain Assessment Pain When Pain Assessed At Rest Pain Present Pain Present Denied Pain M4 OT- IP ADL's Start: 08/22/21 12:13 Freq: Status: Active Protocol: Document 08/23/21 10:58 [facility] (Rec: 08/23/21 12:58 [facility] [id number]) OT [id number] Comments OT Self-Feeding Comments Pt needing cues to sip the water from the straw and tends to hold the water in his mouth and needing cues to swallow. Pt immediately coughed after swallowing. OT ADL-Grooming General Evaluation Grooming Ability Standby Assistance Comments OT Grooming Comments Pt able to wash his face after set-up of wash cloth while in bed. OT ADL-Oral Care General Eval Oral Care Ability Standby Assistance Areas of Assistance Retrieving/Set-Up of Items Comments Oral Care Comments Pt able to swab his mouth after set-up of mouth swab for the pt. M5 OT- IP IADL's Start: 08/22/21 12:13 Freq: Status: Active Protocol: Document 08/22/21 11:42 [facility] (Rec: 08/22/21 12:31 [facility] [id number]) OT-Instrumental Activities of Daily Living Medication Management Medication Management Caregiver Administers Money Management Money Management Caregiver Provides Assistance Delinquent Tax Collector Assistant Delinquent Tax Collector Assistant Caregiver Provides Assist Driving Driving Concerns Identified Regarding Safety M6 OT- IP Functional Cognition Start: 08/22/21 12:13 Freq: Status: Active Protocol: Document 08/23/21 10:58 [facility] (Rec: 08/23/21 12:58 [facility] [id number]) Cognitive Factors Limiting Selfcare Function Cognitive Ability Level of Alertness Alert Patient Orientation Name Attention Span Ability Capable of Focused Attention, Capable of Sustained Attention Ability to Follow Commands Able to Follow One Step Commands Cognitive Comments Cognitive Assessment Comments Pt able to follow simple commands and not as animated as yesterday. Pt more tired today. OT- Vision and Hearing OT- Vision Assessment Vision Assessment Comments Pt's head turned to the right more today. Pt able to scan the swab from right to left , left eye having more difficulty to look past midline. M8 OT- IP Objective Assessments Start: 08/22/21 12:13 Freq: Status: Active Protocol: Document 08/22/21 11:42 [facility] (Rec: 08/22/21 12:31 [facility] [id number]) OT Gross Range of Motion Upper Extremity Range of Motion Assessment Left Impaired OT Strength Upper Extremity Strength Assessment Left Impaired Comments Strength Comments LUE no movement at this time 0 /5 OT- Coordination Assessment Upper Extremity Finger to Nose Test Left UE Impaired OT-Muscle Tone Assessment Muscle Tone WNL No Muscle Tone Location Left Upper Extremity Type of Tone Hypotonicity OT Sensation Assessment Comments Summary Comments No sensations felt for his LUE at this time. M9 OT- IP Assessment and Plan Start: 08/22/21 12:13 Freq: Status: Active Protocol: Document 08/23/21 10:58 [facility] (Rec: 08/23/21 12:58 [facility] [id number]) OT Summary Assessment and Plan Potential Rehabilitation Potential Fair Analytic Complexity at Evaluation Moderate Summary OT Impairments Range of Motion,Strength, Balance,Coordination,Sensation ,Tone,Functional Mobility,Self -Feeding,Grooming,Dressing, Toileting,Bathing,Toilet Transfers,Shower Transfers, Activity Tolerance Progress Towards Goals Slow Progress due to Medical Issues,Slow Progress due to Activity Tolerance Assessment Summary Pt less alert today. Pt able participate with grooming needs today. Pt looking to go to skilled rehab when medically stable. Goals Self-Feeding Goal Standby Assistance Grooming Goal Standby Assistance Dressing Goal Moderate Assistance Toileting Goal Moderate Assistance Bathing Goal Moderate Assistance Toilet Transfer Goal Moderate Assistance Shower Transfer Goal Moderate Assistance Days to Meet Goals 60 Frequency of Treatment Frequency Of Treatment Once a Day Treatment Plan OT Treatment Plan ADL Training,Functional Mobility,Vision Retraining, Patient/Family Education, Discharge Planning Other Treatment Recommendations and Next Pt to be able to complete Treatment Focus grooming at edge of bed with MODA for balance. Discharge Recommendations OT Discharge Recommendations SNF Rehab Transportation Needs at Discharge Stretcher/Ambulance
--- NOTE | 2021-08-23 12:32 | PT-IP ANOTE ---
Attempted to see pt again at 12:25, pt agreeable to trying leg exercises. Able to perform very minimally, but needs assist and is lacking sensation of LLE. Pts son arrived and requested pt rest today due to higher level of fatigue. Will check back tomorrow. No charge.
--- NOTE | 2021-08-23 14:03 | PC.RNWOUND ---
Patient resting in bed, turns to right side with assist. Linear abrasion in gluteal cleft appears unchanged since 08/21. This wound is gently cleansed with saline and dried. Dry gauze is placed in skin fold to absorb moisture. Patient is turned to left side by EQUIPMENT PROCESSOR and wound nurse with 30 degree tilt to offload this vulnerable area. Patient tolerates cares well. Order changed to turn q 1 hour for low dalila.
--- NOTE | 2021-08-23 14:05 | CM.DPC ---
Addendum entered by Kitty Blakely R.N. 08/23/21 16:04: Spoke with Noah @ [facility]. Insurance auth still pending. Noah to update me in the AM. Kitty Blakely RN/KORIN Original Note: DCP Cont: DCP called [facility] to inquire about status update on pt insurance auth status. DCP left message to call back. DCP to continue to follow. Kitty Blakely RN/TRISTANP
--- NOTE | 2021-08-23 14:22 | PC.RNWOUND ---
Small piece of duoderm applied over superior gluteal cleft/coccyx for protection.
--- NOTE | 2021-08-23 16:40 | PC.NURSE ---
Alert, oriented to some questions./forgetful Pt resting at intervals. Repositioned frequently SpO2 94-96% RA NIH of 14, no left sided movement of extremities. With Left sided facial droop. New Covid swab sent for possible D/C to [facility] tomorrow. Condition remains essentially unchanged. Call light w/in reach, bed alarm on for pt safety. Continue w/plan of care.
--- NOTE | 2021-08-23 16:52 | PM.PN.1 ---
Subjective Subjective Date Patient Seen: 08/23/21 Interval history: Denies complaints today, still tolerating food okay and slowly improving. Exam Vital Signs (past 8 hours): - 08/23/21 09:26 08/23/21 10:00 08/23/21 12:00 Pulse Rate 3 L 72 Respiratory Rate Blood Pressure 161/76 H 162/92 H Pulse Oximetry 93 Oxygen Delivery Method Nasal Cannula Oxygen Flow Rate 2 08/23/21 11:05 08/23/21 13:55 08/23/21 15:00 Pulse Rate 72 Respiratory Rate 18 Blood Pressure 162/92 H Pulse Oximetry 94 95 Oxygen Delivery Method Room Air Oxygen Flow Rate 08/23/21 16:00 Pulse Rate Respiratory Rate Blood Pressure Pulse Oximetry 95 Oxygen Delivery Method Room Air Oxygen Flow Rate Oxygen Delivery Method Room Air Oxygen Flow Rate 2 Narrative Exam Narrative: GEN: chronically ill appearing, no acute distress PULM: CTA b/l no wheezing rhonchi or rales. CV: regular rate and rhythm, no murmurs ABD: soft, nontender, nondistneded EXT: warm and well perfused, right aka NEURO: flaccid left side, facial droop on right, oriented and conversant, speech is dysarthric Objective Labs Result Diagrams: 08/22/21 04:25 08/22/21 20:46 Labs: Laboratory Results - last 24 hr 08/22/21 20:46 Potassium 3.9 PFSH Medical History Amputation of leg, right, traumatic Cellulitis of right axilla Constipation Ischemic cardiomyopathy Weight loss observed on examination Social History household members: friend(s) Smoking Status: Former smoker alcohol intake: never Assessment & Plan Assessment & Plan narrative: 1. Acute embolic CVA -patient with history of ischemic cardiomyopathy, permanent atrial fibrillation and Eliquis anticoagulation with unknown degree of compliance -presents with significant speech impairment, gaze deviation, and a dense left hemiparesis indicative large area of cerebral compromise -CTA indicative of thrombus/embolus distal M3 and M4 branches of right MCA, no significant carotid or posterior circulation narrowing -MRI not possible due to presence of ICD -repeat CT head shows large evolving infarction involving most of right parietal lobe -dysphagia diet, patient is tolerating -aspirin 81mg daily -probably should hold Eliquis for at 2-3 weeks in light of large size of infarct -allowed permissive hypertension, use IV labetalol 10 mg as needed for BP greater than 220/120. Have slowly resumed antihypertensives over the course of his admission. Will add back his home HCTZ tomorrow AM. -telemetry without events. -PT/OT to continue as tolerated 2. Ischemic cardiomyopathy with acute systolic CHF exacerbation and possible NSTEMI -suspect respiratory distress is secondary to fluid overload from IV fluid in a patient with cardiomyopathy -xray shows volume overload -BNP elevated -initial troponin elevated as well, suspect caused by CHF exacerbation, will continue to trend -ECHO ordered which shows known cardiomyopathy, EF 30% -already ordered for aspirin, will order statin -would not given heparin for now given concern for hemorrhagic transformation -symptoms of respiratory distress now improved. 3. Leukopenia and thrombocytopenia, improved Dispo: spoke with son who agrees with hospice referral, likely discharge to rehab possibly tomorrow. Time Spent With Patient Critical Care time: I spent a total of [] minutes of critical care time on this patient's care today; this time is exclusive of procedural time. Quality VTE Deep Vein Thrombosis/Pulmonary Embolism Present on Admission: No
[2021-08-23 17:04] LABS: COVID19 -Nasal RAPID Negative (Negative)
[2021-08-23] MEDS: TRAZODONE 50 MG TABLET PO (20:15)
[2021-08-23] MEDS: ATORVASTATIN 20 MG TABLET 40 MG PO (20:15)
[2021-08-24] VITALS: BP 142/75; PULSE 69; RESP 18; TEMP 36.7; O2SAT 95
[2021-08-24 04:00] VITALS: BP 145/90; PULSE 70; RESP 18; TEMP 36.3; O2SAT 94
[2021-08-24 04:41] LABS: Add Manual Diff / Slide Review NO; Basophils Absolute Auto 100 /uL (0-100); Basophils Percent Auto 0.8 % (0-2); Eosinophils Absolute Auto 100 /uL (0-450); Eosinophils Percent Auto 1.2 % (2-4); Hematocrit 45.6 % (41-53); Hemoglobin 15.5 g/dL (13.5-17.5); Lymphocytes Absolute Auto 1300 /uL (1100-4500); Lymphocytes Percent Auto 18.2 % (25-40); Mean Corpuscular HGB Conc 34.1 % (30-36); Mean Corpuscular Hemoglobin 30.1 PG (26-34); Mean Corpuscular Volume 88.4 fL (80-100); Monocytes Absolute Auto 900 /uL (0-900); Neutrophils Absolute Auto 4800 /uL (1500-7000); Neutrophils Percent Auto 67.8 % (50-75); Platelet Count 127 X10^3/uL (150-400); Red Blood Cell Count 5.16 X10^6/uL (4.5-5.9); Red Cell Distribution Width 14.6 % (11.6-14.8); White Blood Cell Count 7.2 X10^3/uL (4.5-11.0)
[2021-08-24 04:55] LABS: BUN Creatinine Ratio 31.6 (6-22); Blood Urea Nitrogen 24 mg/dL (9-20); Calcium 9.9 mg/dL (8.4-10.2); Carbon Dioxide 26 mmol/L (22-32); Chloride 108 mmol/L (98-107); Estimated Glomerular Filt Rate > 60 mL/min (>60); Glucose 112 mg/dL (80-110); HEMOLYSIS < 15 (0-50); Potassium 3.5 mmol/L (3.4-5.1); Sodium 141 mmol/L (137-145)
[2021-08-24 07:42] VITALS: BP 141/75; PULSE 67; RESP 16; TEMP 36.3; O2SAT 94
[2021-08-24 08:58] VITALS: BP 141/75; PULSE 67
[2021-08-24] MEDS: METOPROLOL ER 50 MG TABLET PO (08:58)
[2021-08-24] MEDS: CITALOPRAM 10 MG TABLET 40 MG PO (08:59)
[2021-08-24] MEDS: TAMSULOSIN 0.4 MG CAPSULE PO (08:59)
[2021-08-24] MEDS: AMLODIPINE 5 MG TABLET PO (08:59)
[2021-08-24] MEDS: ASPIRIN EC 81 MG TABLET PO (08:59)
[2021-08-24] MEDS: hydroCHLOROthiazide 25 MG TABLET 12.5 MG PO (08:59)
--- NOTE | 2021-08-24 09:07 | PM.DS.1 ---
History of Present Illness History of Present Illness Date Patient Seen: 08/24/21 Time Patient Seen: 09:07 Chief complaint: Stroke Narrative: 85-year-old right handed male with history traumatic right AKA, chronic back pain, phantom limb pain, ischemic cardiomyopathy, 4 vessel CABG, permanent atrial fibrillation, and SVT, ascending aorta aneurysm, hypertension, hyperlipidemia and most recently ICD placement in April 2021 brought to emergency department for stroke symptoms.? Last normal was 9:00 p.m. yesterday evening.? In ED noted to be dysarthric with a left facial droop and left hemiparesis.? Initial BP was 157/89.? Head CT showed subtle loss of navarro white matter differentiation in right parietal temporal lobes consistent with acute infarct.? CTA showed enhancement in distal M3 and M4 branches of right MCA concerning for thrombus/embolus.? There is no significant narrowing and carotid or posterior circulation.? Initial lab draw in the ED with incorrect CBC and chemistry values and were repeated.? Patient did intervene Geeta receive IV calcium based on and correct lab data.? Patient presented too late for tPA.? ED physician contacted tele Stroke Team who did not think he was candidate for catheter intervention and recommended aspirin but to hold Eliquis for now.? Patient's son did confirm to ED physician no CPR code status.? Family history unable to obtain. Discharge Providers Provider Date of admission: 08/20/21 11:55 Discharge Date: 08/24/21 Primary care physician: Filemon Nathan DO Consults: 08/20/21 14:28 Consult to Occupational Therapy Evaluate & Treat Comment: Physician Instructions: Evaluate and treat Consult to Physical Therapy Evaluate & Treat Comment: Physician Instructions: Evaluate and Treat Consult to Speech Therapy Evaluate & Treat Comment: Physician Instructions: Evaluate and treat 08/21/21 04:37 Consult to Inpatient Wound Care Nurse Routine Comment: Reason for consultation: open area on coccyx Has provider been notified: No 08/21/21 17:24 Consult to Hospice Referral Routine Comment: Discharge provider: Aarti Jeong MD Summary Hospital Course Discharge Diagnosis: 1. Acute Embolic CVA 2. Ischemic Cardiomyopathy, severe ischemic with EF of 30-35%, Acute Systolic Heart Failure-improved 3. Type 2 Myocardial infarction 4. chronic Atrial fibrillation 5. Ascending Aortic Aneurysm 6. Hypertension 7. Hyperlipidemia 8. Recent ICD placement Hospital Course: Patient was admitted to the hospital for stroke like symptoms. ?Head CT showed subtle loss of navarro white matter differentiation in right parietal temporal lobes consistent with acute infarct.? CTA showed enhancement in distal M3 and M4 branches of right MCA concerning for thrombus/embolus.Patient was outside of the window for TPA. Eliquis was held and aspirin continued. Patient developed shortness of breath that was felt to be due to Acute Systolic Heart Failure. IV fluids were discontinued and he had improvement of his symptoms. Patient was seen by PT/OT/Speech. He continued to have a right gaze palsy. His diet was advanced which he tolerated without difficulty. A repeat Head CT was obtained that revealed a large evolving infarction of the right parietal lobe. Unable to obtain MRI given ICD. Eliquis still held but should be resumed in 2-3 weeks given the size of the infarction. Patient made slow but steady progress and was deemed appropriate for discharge to [facility] for ongoing rehabilitation. Status at Discharge Cognitive/behavioral status at discharge: oriented Functional status at discharge: wheelchair bound Overall status at discharge: patient is progressing back to baseline Exam Vital Signs (past 8 hours): - 08/24/21 04:00 08/24/21 04:00 08/24/21 07:42 Temperature 97.4 F L 97.4 F L Pulse Rate 70 67 Respiratory Rate 18 16 Blood Pressure 145/90 H 141/75 H Pulse Oximetry 94 94 94 Oxygen Delivery Method Room Air Oxygen Flow Rate 0 08/24/21 08:58 Temperature Pulse Rate 67 Respiratory Rate Blood Pressure 141/75 H Pulse Oximetry Oxygen Delivery Method Oxygen Flow Rate Oxygen Delivery Method Room Air Oxygen Flow Rate 0 Narrative Exam Narrative: ill appearing male with a right gaze palsy, left facial droop Resp Other: Lungs: decreased breath sounds but clear to auscultation Cardio Other: CV: Irregularly irregular, nl Sl S2 GI Other: Abd: soft/ non tender non distended Neuro Other: left facila droop, right gaze palsy, speech slurred, Right AKA Extrem Other: right Aka Objective Labs Result Diagrams: 08/24/21 04:15 08/24/21 04:15 Labs: Laboratory Results - last 24 hr 08/23/21 08/24/21 08/24/21 16:30 04:15 04:15 WBC 7.2 RBC 5.16 Hgb 15.5 Hct 45.6 MCV 88.4 MCH 30.1 MCHC 34.1 RDW 14.6 Plt Count 127 L Neut % (Auto) 67.8 Lymph % (Auto) 18.2 L [place] % (Auto) 12.0 Eos % (Auto) 1.2 L Baso % (Auto) 0.8 Neut # (Auto) 4800 Lymph # (Auto) 1300 [place] # (Auto) 900 Eos # (Auto) 100 Baso # (Auto) 100 Sodium 141 Potassium 3.5 Chloride 108 H Carbon Dioxide 26 BUN 24 H Creatinine 0.76 Estimated GFR > 60 BUN/Creatinine Ratio 31.6 H Glucose 112 H Calcium 9.9 SARS-CoV-2 (PCR) Negative [facility] Medical History Amputation of leg, right, traumatic Cellulitis of right axilla Constipation Ischemic cardiomyopathy Weight loss observed on examination Social History household members: friend(s) Smoking Status: Former smoker alcohol intake: never Discharge Assessment & Plan Assessment and Plan Assessment: 1. Acute Embolic CVA 2. Ischemic Cardiomyopathy, severe ischemic with EF of 30-35%, Acute Systolic Heart Failure-improved 3. Type 2 Myocardial infarction 4. chronic Atrial fibrillation 5. Ascending Aortic Aneurysm 6. Hypertension 7. Hyperlipidemia 8. Recent ICD placement Plan of Treatment: Discharge to SNF Continue Aspirin Hold Eliquis for 2-3 weeks then resume Discharge Plan Discharge Plan Patient Disposition: SNF Consult as needed: Dental, Hearing, Mental health, Podiatry and Vision Discharge orders & Medications Prescriptions: Continued tamsulosin [Flomax] 0.4 mg capsule 0.4 mg PO HS Qty: 90 3RF trazodone 50 mg tablet 50 mg PO HS Qty: 90 3RF amlodipine 5 mg tablet 5 mg PO DAILY Qty: 90 3RF atorvastatin [Lipitor] 40 mg tablet 40 mg PO HS Qty: 90 3RF nitroglycerin [Nitrostat] 0.4 mg tablet, sublingual 0.4 mg Sublingual Q5-15M Qty: 20 2RF aspirin [Adult Aspirin Regimen] 81 mg tablet,delayed release (DR/EC) 81 mg PO DAILY citalopram 40 mg tablet 40 mg PO DAILY Label Comments: TAKE 1 TABLET BY MOUTH DAILY hydrochlorothiazide 25 mg Tablet 25 mg PO DAILY metoprolol succinate [Toprol XL] 50 mg tablet extended release 24 hr 50 mg PO BID Discontinued hydrocodone-acetaminophen 7.5-325 mg tablet 1 - 2 tab PO Q4-6HP PRN (Reason: pain) Qty: 150 0RF Rx Instructions: Patient needs appointment with PCP prior to refills Follow up/Referrals: Filemon Nathan DO [Primary Care Provider] - Discharge Health Status Multidrug resistant organism: No MDRO Diet/Activity/Treatments Diet: Diet as Tolerated Liquid consistency: Normal/Thin Food texture: Blenderized or pureed Skin/Wound/Dressing Care Report to your healthcare provider any signs of infection, such as:: chills, fever Special Rehabilitation Services Reason for rehabilitation: Therapy following stroke Rehab type: Physical therapy, Occupational therapy and Speech therapy Discharge Data Primary Care Provider: Filemon Nathan Quality VTE Deep Vein Thrombosis/Pulmonary Embolism Present on Admission: No
[2021-08-24] MEDS: SODIUM CHLORIDE 0.9% FLUSH 10 ML IV (09:08)
--- NOTE | 2021-08-24 09:22 | CM.DPNOTE ---
Edil Tang, Spoke to Td at Ambulance for 1400 package pick up for pt. Chanelle Rodgers, CM Assist.
[2021-08-24 10:03] VITALS: BP 142/83; PULSE 65
--- NOTE | 2021-08-24 10:21 | ST.IPDYTX ---
Visit Care Team Role Provider Type Filemon Nathan DO Primary Care Provider Physician Specialty: Family Practice Address: [address] [place] [address], [id number] Email: [email or web address] Marlyn Harrell DO Emergency Provider Physician Referring Provider Specialty: Emergency Medicine Address: [address] [place] [address], [id number] Email: [email or web address] MD Admit Provider Physician Attending Provider Specialty: Internal Medicine Address: [address] [place] [address], [address] Email: [email or web address] Dysphagia Treatment [employer] Clinical Instructor Line Start: 08/21/21 16:26 Freq: Status: Active Protocol: Document 08/22/21 15:02 REYNALDO (Rec: 08/22/21 15:02 REYNALDO [email or web address]) Clinical Instructor Signature Clinical Instructor Clinical Instructor Yes [employer] Dysphagia Treatment Start: 08/22/21 12:52 Freq: Status: Active Protocol: Document 08/24/21 10:15 ZS (Rec: 08/24/21 10:21 ZS [id number]) Dysphagia Treatment Session Time Visit Start Time 09:15 Visit Stop Time 09:30 Total Visit Minutes 15 Setting Assessment Location Acute Care Visit Type Note Type Treatment Note Patient Information Identification Type Name,ID Wristband Subjective Observations Pt was awake and upright in bed with pts? son present in the room upon [employer] INST[employer]ER arrival. Pt 's head was turned to the right today. Treatment Liquids Trialed Thin Administration Type Straw,Self-Feeding Oral Strategies Upright at 90 degrees, Controlled Bite/Sip Size Pharyngeal Strategies Sitting Upright (90 deg),Small Bites and Sips Treatment Activities Observed pt drink thin water through straw cup. Pt independently fed himself with cup and increased lip closure was observed with reduced anterior loss of bolus as compared to yesterday. Pt took appropriately small sips and exhibited one instance of coughing following a drink. Pt exhibited weak cough but did produce a strong cough when cued by clinician. Mild oral residue observed following all trials, with countdown to swallow strategy implemented (e.g., 3, 2, 1, swallow following each drink) . Assessment Patient Response to Treatment Good Rehab Potential Good Assessment of Improvement Pt reported fatigue following 2 sips of water through straw cup. He reported eating most of his breakfast, but observation of breakfast tray indicated pt had eaten 1-5% of breakfast. This diet level is still appropriate, however, ongoing assessment is needed to determine least restrictive diet. Pt to discharge to [facility] at 14:00 today. Diet Recommendations Recommendations Continue Current Diet Liquids Order Thin Diet Order Dysphagia Blenderized Medication Recommendations Whole in Carrier Additional Dietary Needs Encourage to Self-Feed Aspiration Precautions Recommended Precautions Upright at 90 Degrees,Small Bites/Sips,Check for Pocketing ,Liquids from Cup Treatment Plan Placement Recommendation after Discharge [facility] Facility Appropriate for Continued Therapy Yes Therapy Recommendations Continue to see 1x daily over course of hospital stay to monitor progress and further assess/treat deficits as needed. Dysphagia Goals 1. Pt will participate in further evaluation in order to assess and treat swallow. 2. Pt will follow safe swallow strategies with prompts. 3. Pt/caregiver will receive education regarding safe swallow strategies and importance of oral hygiene in preventing aspiration pneumonia. 4. Pt will safely tolerate least restrictive diet to meet nutrition and hydration needs .
--- NOTE | 2021-08-24 10:24 | CM.DPC ---
DCP Cont: Per MD, pt medically stable for discharge today. DCP spoke with [facility] this morning and they verbalized that they obtained insurance auth and can accept pt today before 1700. DCP spoke with pt and son bedside about plan. Both agreeable. DCP had transport set up for 1400 via BLS today. DCP faxed over, d/c summary, pt/ot notes, PASRR, and med list to [facility]. P: Pt to discharge to [facility] today @ 1400. RN updated and paperwork placed in patient chart. No other needs identified at this time. Kitty Blakely RN/DCP
[2021-08-24 10:30] VITALS: O2SAT 91
--- NOTE | 2021-08-24 10:36 | PT-IP ANOTE ---
Attempted to see pt at 10:15, pt only intermittently awake. Repositioned pt Max A x2 w/ OT. BP: 152/112 and then 155/103 w/ O2 98% on RA. Unable to work w/ pt due to high BP and pt unable to stay awake.
--- NOTE | 2021-08-24 10:39 | OT.IPNOTE ---
Attempted to see pt with [employer] BP with HOB up 152/112 and 155/103, in addition pt not staying awake and alert and fazing out at times. Pt looking to go to skilled rehab today. To notify nursing of high BP.
--- NOTE | 2021-08-24 14:13 | PC.NURSE ---
Pt is AxOx3, calm and cooperative. VSS, pt denies pain. IV and Velasquez is removed. Pt ate minimal and drank some juice. No BM today. Velasquez drained 420 ml homer color urine. Report given to ALKA oswald, and pt is d/c to [facility] ([facility]).
== END 2021-08-24 14:17 | DRG 64 ==
LOC: ED 11:50 → AC 11:56
PROVIDERS: Internal Medicine; Admitting Provider Internal Medicine; Emergency Provider Emergency Medicine; PCP Family Medicine; Referring Provider Emergency Medicine; Visit Provider Internal Medicine
DX: I63.411 Cerebral infarction due to embolism of right middle cerebral artery (principal); I50.21 Acute systolic (congestive) heart failure; I21.A1 Myocardial infarction type 2; G81.94 Hemiplegia, unspecified affecting left nondominant side; I48.21 Permanent atrial fibrillation; R47.01 Aphasia; Z66 Do not resuscitate; I11.0 Hypertensive heart disease with heart failure; E78.5 Hyperlipidemia, unspecified; R29.717 NIHSS score 17; R29.719 NIHSS score 19; I25.10 Atherosclerotic heart disease of native coronary artery without angina pectoris; Z95.1 Presence of aortocoronary bypass graft; Z79.01 Long term (current) use of anticoagulants; Z87.891 Personal history of nicotine dependence
CPT/HCPCS: 36415; 36600; 70450; 70496; 70498; 71045; 80048; 80053; 80305; 81001; 82550; 82805; 83605; 83735; 83880; 84132; 84484; 85014; 85018; 85025; 85027; 85610; 85730; 87635; 92526; 92610; 93005; 93010; 93306; 94760; 96365; 97162; 97166; 97530; 97535; 99285; 99291; 99292; C9803; J0610; J1940; Q9967